=== PATIENT | female | born 1960 | race Caucasian/White ===

== ENCOUNTER 2016-07-25 01:31 | Inpatient (IN) | payer OTHER ==
[2016-07-25] MEDS ORDERED: SODIUM CHLORIDE 0.9% 1,000 ML IV STA (01:59)
[2016-07-25] MEDS ORDERED: ACETAMINOPHEN TAB 325 MG TAB PO STA (01:59)
[2016-07-25] MEDS ORDERED: ONDANSETRON 4 MG/2 ML VIAL IVP STA (02:00)
--- NOTE | 2016-07-25 02:11 | ED ---
General Adult HPI - General Chief complaint: Nausea/Vomiting/Diarrhea Stated complaint: bed sores Time Seen by Provider: 07/25/16 01:41 Source: patient, family Mode of arrival: ambulatory Limitations: no limitations - History of Present Illness Initial comments: This patient is 56-year-old woman who presents to be evaluated for "feeling sick " going for about one week now. Patient is somewhat of a poor historian when asked to clarify what being sick is referring to she continually uses the term sick. On appears her has been some fever and cough. Patient has had some myalgias and has been lying in bed. Patient is also had a couple of episodes of vomiting, though denying chest or abdominal pain. Onset/Timin -: week(s) Consistency: constant Improves with: none Worsens with: none Associated Symptoms: cough - Related Data Home Medications Medication Instructions Recorded Confirmed No Known Home Medications [No 07/25/16 07/25/16 Known Home Medications] Allergies Allergy/AdvReac Type Severity Reaction Status Date / Time Penicillins Allergy Unknown Verified 07/25/16 01:36 Childhood Review of Systems ROS Statement: Those systems with pertinent positive or pertinent negative responses have been documented in the HPI. ROS Other: All systems not noted in ROS Statement are negative. Constitutional: Reports: fever ENT: Reports: congestion Respiratory: Reports: cough. Denies: dyspnea, hemoptysis Cardiovascular: Denies: chest pain, orthopnea, syncope Gastrointestinal: Reports: vomiting. Denies: abdominal pain, diarrhea, constipation, melena, hematochezia Genitourinary: Denies: dysuria, hematuria Skin: Denies: rash Neurological: Denies: headache, weakness, numbness Past Medical History Past Medical History: No Reported History History of Any Multi-Drug Resistant Organisms: None Reported Past Surgical History: Orthopedic Surgery Additional Past Surgical History / Comment(s): breast Past Psychological History: No Psychological Hx Reported Smoking Status: Current every day smoker Past Alcohol Use History: Occasional Past Drug Use History: None Reported - Past Family History Father Family Medical History: No Reported History General Exam Limitations: no limitations General appearance: alert, in no apparent distress Head exam: Present: atraumatic, normocephalic Eye exam: Present: normal appearance, PERRL, EOMI. Absent: scleral icterus, conjunctival injection, nystagmus ENT exam: Present: mucous membranes dry, other (Injection of the pharynx) Neck exam: Present: normal inspection, full ROM. Absent: tenderness, meningismus Respiratory exam: Present: normal lung sounds bilaterally. Absent: respiratory distress, wheezes, rales, rhonchi, stridor Cardiovascular Exam: Present: normal rhythm, tachycardia, normal heart sounds. Absent: systolic murmur, diastolic murmur, rubs, gallop GI/Abdominal exam: Present: soft. Absent: distended, tenderness, guarding, rebound, mass Extremities exam: Present: normal inspection, normal capillary refill. Absent: pedal edema, calf tenderness Back exam: Present: normal inspection. Absent: CVA tenderness (R), CVA tenderness (L) Neurological exam: Present: alert Skin exam: Present: warm, dry, intact, normal color. Absent: rash Course Vital Signs 07/25/16 07/25/16 07/25/16 01:33 02:24 03:24 Temperature 102 F H 98.5 F Pulse Rate 111 H 95 Respiratory 20 18 Rate Blood Pressure 94/61 109/67 O2 Sat by Pulse 95 97 Oximetry 07/25/16 04:00 Temperature 98.0 F Pulse Rate 82 Respiratory 18 Rate Blood Pressure 102/58 O2 Sat by Pulse 96 Oximetry Medical Decision Making - Lab Data Result diagrams: 07/25/16 01:50 07/25/16 01:50 Lab Results 07/25/16 07/25/16 07/25/16 Range/Units 01:50 01:50 01:50 WBC 10.6 (3.8-10.6) k/uL RBC 3.38 L (3.80-5.40) m/uL Hgb 10.7 L (11.4-16.0) gm/dL Hct 30.7 L (34.0-46.0) % MCV 90.8 (80.0-100.0) fL MCH 31.6 (25.0-35.0) pg MCHC 34.8 (31.0-37.0) g/dL RDW 13.5 (11.5-15.5) % Plt Count 310 (150-450) k/uL Neutrophils % 86 % Lymphocytes % 7 % Monocytes % 4 % Eosinophils % 0 % Basophils % 0 % Neutrophils # 9.1 H (1.3-7.7) k/uL Lymphocytes # 0.7 L (1.0-4.8) k/uL Monocytes # 0.5 (0-1.0) k/uL Eosinophils # 0.0 (0-0.7) k/uL Basophils # 0.1 (0-0.2) k/uL ESR 96 H (0-20) mm/hr Sodium 128 L (137-145) mmol/L Potassium 4.2 (3.5-5.1) mmol/L Chloride 95 L (98-107) mmol/L Carbon Dioxide 22 (22-30) mmol/L Anion Gap 11 mmol/L BUN 10 (7-17) mg/dL Creatinine 0.60 (0.52-1.04) mg/dL Est GFR (MDRD) Af Amer >60 (>60 ml/min/1.73 sqM) Est GFR (MDRD) Non-Af >60 (>60 ml/min/1.73 sqM) Glucose 122 H (74-99) mg/dL Plasma Lactic Acid Connor (0.7-2.0) mmol/L Calcium 8.0 L (8.4-10.2) mg/dL Total Bilirubin 0.7 (0.2-1.3) mg/dL AST 98 H (14-36) U/L ALT 57 H (9-52) U/L Alkaline Phosphatase 109 (38-126) U/L Total Protein 8.2 (6.3-8.2) g/dL Albumin 2.8 L (3.5-5.0) g/dL Urine Color Urine Appearance (Clear) Urine pH (5.0-8.0) Ur Specific [place] (1.001-1.035) Urine Protein (Negative) Urine Glucose (UA) (Negative) Urine Ketones (Negative) Urine Blood (Negative) Urine Nitrate (Negative) Urine Bilirubin (Negative) Urine Urobilinogen (<2.0) mg/dL Ur Leukocyte Esterase (Negative) Urine RBC (0-5) /hpf Urine WBC (0-5) /hpf Ur Squamous Epith Cells (0-4) /hpf Urine Mucus (None) /hpf Influenza Type A RNA Not Detected (Not Detectd) Influenza Type B (PCR) Not Detected (Not Detectd) Group A Strep Rapid (Negative) 07/25/16 07/25/16 07/25/16 Range/Units 01:50 01:50 03:15 WBC (3.8-10.6) k/uL RBC (3.80-5.40) m/uL Hgb (11.4-16.0) gm/dL Hct (34.0-46.0) % MCV (80.0-100.0) fL MCH (25.0-35.0) pg MCHC (31.0-37.0) g/dL RDW (11.5-15.5) % Plt Count (150-450) k/uL Neutrophils % % Lymphocytes % % Monocytes % % Eosinophils % % Basophils % % Neutrophils # (1.3-7.7) k/uL Lymphocytes # (1.0-4.8) k/uL Monocytes # (0-1.0) k/uL Eosinophils # (0-0.7) k/uL Basophils # (0-0.2) k/uL ESR (0-20) mm/hr Sodium (137-145) mmol/L Potassium (3.5-5.1) mmol/L Chloride (98-107) mmol/L Carbon Dioxide (22-30) mmol/L Anion Gap mmol/L BUN (7-17) mg/dL Creatinine (0.52-1.04) mg/dL Est GFR (MDRD) Af Amer (>60 ml/min/1.73 sqM) Est GFR (MDRD) Non-Af (>60 ml/min/1.73 sqM) Glucose (74-99) mg/dL Plasma Lactic Acid Connor 1.0 (0.7-2.0) mmol/L Calcium (8.4-10.2) mg/dL Total Bilirubin (0.2-1.3) mg/dL AST (14-36) U/L ALT (9-52) U/L Alkaline Phosphatase (38-126) U/L Total Protein (6.3-8.2) g/dL Albumin (3.5-5.0) g/dL Urine Color Yellow Urine Appearance Cloudy H (Clear) Urine pH 6.0 (5.0-8.0) Ur Specific [place] 1.007 (1.001-1.035) Urine Protein 1+ H (Negative) Urine Glucose (UA) Negative (Negative) Urine Ketones Negative (Negative) Urine Blood Negative (Negative) Urine Nitrate Negative (Negative) Urine Bilirubin Negative (Negative) Urine Urobilinogen <2.0 (<2.0) mg/dL Ur Leukocyte Esterase Negative (Negative) Urine RBC 1 (0-5) /hpf Urine WBC 6 H (0-5) /hpf Ur Squamous Epith Cells 2 (0-4) /hpf Urine Mucus Rare H (None) /hpf Influenza Type A RNA (Not Detectd) Influenza Type B (PCR) (Not Detectd) Group A Strep Rapid Negative (Negative) Disposition Clinical Impression: Pneumonia Disposition: ADMITTED IP TO THIS HOSP Condition: Fair
[2016-07-25 02:12] LABS: Basophils # (A) 0.1 k/uL (0-0.2); Basophils % (A) 0 %; CH 30.6; CHCM 33.8; Eosinophils % (A) 0 %; HCT 30.7 % (34.0-46.0); HDW 2.31; HGB 10.7 gm/dL (11.4-16.0); Luc # (Auto) 0.19; Luc % (Auto) 2; Lymphocytes # (A) 0.7 k/uL (1.0-4.8); Lymphocytes % (A) 7 %; MCH 31.6 pg (25.0-35.0); MCHC 34.8 g/dL (31.0-37.0); MCV 90.8 fL (80.0-100.0); Mean Platelet Volume 8.6; Monocytes # (A) 0.5 k/uL (0-1.0); Monocytes % (A) 4 %; Neutrophils # (A) 9.1 k/uL (1.3-7.7); Neutrophils % (A) 86 %; RBC 3.38 m/uL (3.80-5.40); RDW 13.5 % (11.5-15.5); WBC 10.6 k/uL (3.8-10.6); WBC (Perox) 10.36
[2016-07-25 02:24] LABS: ALT 57 U/L (9-52); AST 98 U/L (14-36); Alkaline Phosphatase 109 U/L (38-126); Anion Gap 11 mmol/L; Blood Urea Nitrogen 10 mg/dL (7-17); Carbon Dioxide 22 mmol/L (22-30); Chloride 95 mmol/L (98-107); Glucose 122 mg/dL (74-99); Non-African American GFR(MDRD) >60 (>60 ml/min/1.73 sqM); Potassium 4.2 mmol/L (3.5-5.1); Sodium 128 mmol/L (137-145); Total Bilirubin 0.7 mg/dL (0.2-1.3); Total Protein 8.2 g/dL (6.3-8.2)
--- NOTE | 2016-07-25 02:29 | XR ---
EXAM: XR Chest, 2 Views. CLINICAL HISTORY: Reason: fever TECHNIQUE: Frontal and lateral views of the chest. COMPARISON: No relevant prior studies available. FINDINGS: Lungs: Patchy airspace disease at the left upper lobe. More focal area of very space disease at the peripheral aspect of the right upper lobe. Possible airspace disease involving the inferior lingula. No pleural effusion or pneumothorax. Pleural space: See above. Heart: Unremarkable. No cardiomegaly. Mediastinum: Unremarkable. Bones/joints: Unremarkable. Lymph nodes: Cannot exclude reactive left hilar adenopathy. IMPRESSION: Findings suspicious for multilobar pneumonia. Follow to resolution.
[2016-07-25 02:53] LABS: Erythrocyte Sedimentation Rate 96 mm/hr (0-20)
[2016-07-25] MEDS ORDERED: PNEUMONIA PROTOCOL UTILIZED 1 EACH MISC PO PRN (03:18)
[2016-07-25] MEDS ORDERED: AZITHROMYCIN 500 MG TAB PO STA (03:20)
[2016-07-25 03:25] LABS: Appearance,Urine Cloudy (Clear); Bilirubin,Urine Negative (Negative); Glucose,Urine (UA) Negative (Negative); Ketones,Urine Negative (Negative); Leukocyte Esterase,Urine Negative (Negative); Mucus,Urine Rare /hpf; Nitrite,Urine Negative (Negative); Particle Count 11014; Protein,Urine 1+ (Negative); RBC,Urine 1 /hpf (0-5); Specific Gravity,Urine 1.007 (1.001-1.035); Squamous Epithelial Cell,Urine 2 /hpf (0-4); UA Billing (MACRO vs. MICRO) MICRO; Urobilinogen,Urine <2.0 mg/dL (<2.0); WBC,Urine 6 /hpf (0-5)
[2016-07-25] MEDS: SODIUM CHLORIDE 0.9% 1,000 ML IV SCH ×3 (03:53→20:27)
[2016-07-25] MEDS ORDERED: NAPROXEN 250 MG TAB PO PRN (12:06)
--- NOTE | 2016-07-25 12:20 | P.HPIM ---
History of Present Illness H&P Date: 07/25/16 Chief Complaint: Cough 1 week This is a 56-year-old female with a known history of nicotine dependence and COPD. Patient reports she does not take meds at home. She reports that she had recently been at [facility] emergency room and discharged home earlier this week. She reports she was not on any antibiotics. She's been complaining of productive cough with brownish sputum and some shortness of breath. She states that the cough tends of making her gag and causes almost vomit. She presents to the emergency room with a chest x-ray that shows a multilobar pneumonia she was started on Rocephin and azithromycin. She did have a temp of 102. Her white count and lactic acid were normal. Influenza negative and strep screen was negative. Patient admits to having some chills and sweats. She denies any chest pain. Denies any bowel movement changes or urinary symptoms. Patient's blood pressure have been running in the lower side 82/52. Repeat blood pressure of 90/58. She denies any dizziness. Review of Systems Please refer to HPI otherwise unremarkable Past Medical History Past Medical History: No Reported History History of Any Multi-Drug Resistant Organisms: None Reported Past Surgical History: Orthopedic Surgery Additional Past Surgical History / Comment(s): breast Past Anesthesia/Blood Transfusion Reactions: No Reported Reaction Past Psychological History: No Psychological Hx Reported Smoking Status: Current every day smoker Past Alcohol Use History: Occasional Past Drug Use History: None Reported - Past Family History Father Family Medical History: No Reported History Medications and Allergies Home Medications Medication Instructions Recorded Confirmed Type Naproxen Sodium [Aleve] 220 mg PO DAILY PRN 07/25/16 07/25/16 History Allergies Allergy/AdvReac Type Severity Reaction Status Date / Time Penicillins Allergy Unknown Verified 07/25/16 08:15 Childhood Physical Exam Vitals: Vital Signs Temp Pulse Pulse Resp BP BP Pulse Ox 07/25/16 10:57 90/58 07/25/16 07:00 96.4 F L 84 21 82/52 97 07/25/16 05:07 97.0 F L 83 18 92/62 95 07/25/16 04:00 98.0 F 82 18 102/58 96 07/25/16 03:24 98.5 F Intake and Output 07/24/16 07/25/16 07/25/16 22:59 06:59 14:59 Other: Voiding Method Toilet # Voids 1 Weight 59 kg Head normocephalic Neck supple Lungs coarse breath sounds noted bilaterally Heart regular rate and rhythm S1-S2, no rub or gallop Abdomen is soft nontender nondistended positive bowel sounds no hepatosplenomegaly Extremities no edema Neuro alert and orientated to 3 Results CBC & Chem 7: 07/25/16 01:50 07/25/16 01:50 Thrombosis Risk Factor Assmnt - Choose All That Apply Any of the Below Risk Factors Present?: Yes Each Factor Represents 1 point: Age 41-60 years Other Risk Factors: No Thrombosis Risk Factor Assessment Total Risk Factor Score: 1 Thrombosis Risk Factor Assessment Level: Low Risk Assessment and Plan Plan: 1. Pneumonia: Chest x-ray showing multilobar pneumonia. Patient started on Zithromax and IV Rocephin. 2. Hyponatremia: Sodium of 128. Continue with IV fluids. Repeat labs in a.m. 3. Mildly elevated LFTs: No abdominal pain. Repeat labs in a.m. 4. Nicotine dependence: Patient is down to 7 cigarettes a day. Counseled on smoking cessation for greater than [address] patient on nicotine patch. 5. Possible history of COPD. Patient reports she's not on any medications 6. Hypotension: Patient did receive a fluid bolus in the emergency room. Continue with IV fluids. Monitor blood pressures closely. GI prophylaxis Pepcid and DVT prophylaxis subcu heparin Time with Patient: Greater than 30 (Greater than 50% of the total time spent in counseling and coordination of care.I performed an examination of the patient and discussed their management with the physician Director Dietetics Department. I have reviewed the Physician Director Dietetics Department's notes and agree with the documented findings and plan of care)
[2016-07-25] MEDS ORDERED: IPRATROPIUM-ALBUTEROL 3 ML NEB INHALATION PRN (13:46)
[2016-07-25] MEDS: NICOTINE 7MG/24HR PATCH TRANSDERM SCH (14:48)
[2016-07-25] MEDS: FAMOTIDINE 20 MG TAB PO SCH (14:48)
[2016-07-25] MEDS: IPRATROPIUM-ALBUTEROL 3 ML NEB INHALATION SCH ×2 (16:05→19:46)
[2016-07-25] MEDS ORDERED: RX INFO: IV CONTRAST WAS GIVEN 1 EACH MISC MISCELLANE PRN (16:14)
[2016-07-25] MEDS: OSELTAMIVIR 75 MG CAP PO SCH (16:52)
--- NOTE | 2016-07-25 18:08 | CT ---
EXAMINATION TYPE: CT angio chest DATE OF EXAM: 07/25/2016 5:58 PM COMPARISON: NONE HISTORY: Chest congestion. CT DLP: 438.00 mGycm CONTRAST: CT chest with contrast and 3D reconstruction with MIP imaging is performed with IV Contrast, patient injected with 86 mL of Omnipaque 350. Contrast-enhanced CT of the chest was performed through the course of the pulmonary arteries with timmy g and mediastinal window settings submitted. 3D reconstruction with MIP imaging was also performed. PULMONARY ARTERIES: The pulmonary arteries and their major tributaries are patent. I do not see gustabo dence for sizable filling defect to suggest pulmonary embolic process. LUNGS: Upper lobe airspace infiltrates are noted left much greater than right. There is superimposed fibrosis with bronchiectasis again involving the left upper lobe to a greater extent. Small left-side d pleural effusion is identified. No evidence for pulmonary mass. MEDIASTINUM: Thoracic aorta is of normal caliber . The heart is not enlarged. No evidence for media stinal mass. No mediastinal lymph nodes greater than 1cm. HILAR STRUCTURES: No evidence for mass. No hilar lymph nodes greater than 1 cm. UPPER ABDOMEN: Fixed hiatal hernia noted. IMPRESSION: 1. No evidence for Pulmonary embolism at this time. 2. Upper lobe and lingular infiltrates with superimposed fibrosis and bronchiectasis as well as small left-sided effusion.
[2016-07-25] MEDS ORDERED: IV VANCOMYCIN PER PHARMACY 1 EACH MISC MISCELLANE PRN (19:47)
--- NOTE | 2016-07-25 19:58 | CONS ---
DATE OF CONSULTATION: 07/25/2016 REASON FOR CONSULTATION: Cough, shortness of breath and wheezing that started about 10 to 12 days ago and has been progressive. HISTORY OF PRESENTING ILLNESS: Ms. Yung Tubbs is seen, evaluated, and examined on fourth floor. This patient has a history smoking and nicotine use, smokes about 1 pack per day for 30 to 35 years, started teenage years. The patient does not take flu vaccine. This patient has not been feeling well for the last 7 to 10 days with progressive cough, congestion, shortness of breath and wheezing with lately brownish sputum production. Recently she presented into the emergency department at [facility] and was discharged. Details, however, are not available. Patient presented to the [facility] Emergency Department with persistent and progressive increased shortness and brownish sputum production. The patient was seen, evaluated, examined and found to have significant bronchospasm and has been admitted to the hospital. She is feeling slightly better with breathing treatments and receiving IV steroids though. Her past medical history is as dictated above, significant for COPD. PAST SURGICAL HISTORY: Significant for breast surgery, orthopedic surgery. Details are not available. FAMILY HISTORY AND SOCIAL HISTORY: Otherwise unremarkable and noncontributory except as dictated above. 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 CARDIORESPIRATORY: As dictated above. Significant cough, congestion and sputum production. Also complained of nasal stuffiness and congestion. GI/: Otherwise unremarkable and noncontributory. MUSCULOSKELETAL/DERMATOLOGICAL: Unremarkable and noncontributory. ALLERGIES INCLUDE PENICILLIN. MEDICATIONS AT HOME: None. Current medications while in the hospital include: 1. DuoNeb unit dose updraft 4 times a day. 2. Zithromax 500 mg. 3. Rocephin 1 gram daily. 4. Pepcid 20 mg daily. 5. Subcu heparin for DVT prophylaxis. 6. Sliding scale insulin. 7. Naprosyn. 8. Habitrol patch. 9. IV fluid normal saline 100 mL an hour. On examination, her most recent vitals include blood pressure is 98/50, respiratory rate 20, pulse 82, temperature 98, saturation of 95% on room air. HEENT: Atraumatic, normocephalic. Pharynx clear. NECK: Supple without lymphadenopathy, jugular venous distention. LUNGS: Bilateral coarse breath sounds present inspiratory and expiratory wheezing and rhonchi. HEART: Regular rate and rhythm. S1 and S2 audible. ABDOMEN: Soft. No rebound or rigidity. EXTREMITIES: +1 peripheral pulses. NEUROLOGICAL EXAMINATION: Otherwise, awake and alert. Labs reviewed influenza A and B are both negative. The strep is negative as well. The urine is cloudy, but no significant WBC or RBCs seen. Chemistry with sodium 120, potassium 4.2. BUN and creatinine 10 and 0.6. LFTs are within normal limits. AST and ALT are 90 and 57. Alk phos is 109. Glucose 122. Lactic acid is 1.0. Total bilirubin is 0.7. White cell count 10,600, hemoglobin 10, hematocrit 30, platelet count 310,000. Radiographic studies reviewed. Chest x-ray performed in the emergency department earlier this morning reviewed and compared with prior x-ray, patchy bilateral infiltrates present, more so on the left side compared to the right side, highly suggestive of pneumonia. Atypical pneumonia cannot be excluded versus viral pneumonia ASSESSMENT: 1. Severe hyponatremia of unclear etiology. Would recommend a follow-up chest x-ray down the road to document resolution of pneumonia. 2. Extensive smoking and nicotine use. Patient has been counseled about smoking cessation. Plan and recommendation is as above. Continue supportive care. Continue breathing treatments and antibiotics. Will add IV steroids. Patient has somewhat nodular appearance of infiltrate, an occult neoplastic process cannot be excluded. Could benefit from a CT scan of the chest. Will follow.
[2016-07-25] MEDS: HEPARIN SODIUM,PORCINE 5,000 UNIT/ML 1 ML VIAL SQ SCH (20:25)
[2016-07-25] MEDS: methylPREDNISolone SOD SUCCI 40 MG/ML 1 ML VIAL IV SCH (20:25)
[2016-07-25] MEDS: VANCOMYCIN 1,250 MG in SODIUM CHLORIDE 0.9% 250 ML IVPB SCH (20:29)
[2016-07-26] MEDS: IPRATROPIUM-ALBUTEROL 3 ML NEB INHALATION SCH ×4 (07:30→19:46)
[2016-07-26] MEDS: NICOTINE 7MG/24HR PATCH TRANSDERM SCH (07:48)
[2016-07-26] MEDS: HEPARIN SODIUM,PORCINE 5,000 UNIT/ML 1 ML VIAL SQ SCH ×2 (07:48→20:02)
[2016-07-26] MEDS: methylPREDNISolone SOD SUCCI 40 MG/ML 1 ML VIAL IV SCH ×2 (07:48→20:02)
[2016-07-26] MEDS: VANCOMYCIN 1,250 MG in SODIUM CHLORIDE 0.9% 250 ML IVPB SCH ×2 (07:48→20:02)
[2016-07-26] MEDS: FAMOTIDINE 20 MG TAB PO SCH (07:49)
[2016-07-26] MEDS: OSELTAMIVIR 75 MG CAP PO SCH (07:49)
[2016-07-26 08:20] LABS: Basophils % (A) 0 %; CHCM 31.9; Eosinophils % (A) 0 %; HCT 30.2 % (34.0-46.0); HDW 2.47; HGB 9.7 gm/dL (11.4-16.0); Luc % (Auto) 2; Lymphocytes # (A) 0.5 k/uL (1.0-4.8); Lymphocytes % (A) 10 %; MCH 30.4 pg (25.0-35.0); MCHC 32.2 g/dL (31.0-37.0); MCV 94.6 fL (80.0-100.0); Mean Platelet Volume 8.7; Monocytes # (A) 0.2 k/uL (0-1.0); Monocytes % (A) 3 %; Neutrophils # (A) 4.5 k/uL (1.3-7.7); Neutrophils % (A) 84 %; RBC 3.19 m/uL (3.80-5.40); RDW 13.8 % (11.5-15.5); WBC 5.3 k/uL (3.8-10.6); WBC (Perox) 5.44
[2016-07-26 08:48] LABS: ALT 39 U/L (9-52); AST 28 U/L (14-36); Alkaline Phosphatase 80 U/L (38-126); Anion Gap 10 mmol/L; Blood Urea Nitrogen 8 mg/dL (7-17); Calcium 8.1 mg/dL (8.4-10.2); Carbon Dioxide 23 mmol/L (22-30); Chloride 106 mmol/L (98-107); Glucose 184 mg/dL (74-99); Non-African American GFR(MDRD) >60 (>60 ml/min/1.73 sqM); Potassium 4.4 mmol/L (3.5-5.1); Sodium 139 mmol/L (137-145); Total Bilirubin 0.4 mg/dL (0.2-1.3); Total Protein 7.3 g/dL (6.3-8.2)
[2016-07-26] MEDS ORDERED: AZITHROMYCIN 500 MG TAB PO SCH (09:00)
--- NOTE | 2016-07-26 09:01 | XR ---
EXAMINATION TYPE: XR chest 2V DATE OF EXAM: 07/26/2016 7:10 AM COMPARISON: Prior chest x-ray second of July 2016 HISTORY: Pneumonia, abnormal chest x-ray TECHNIQUE: Frontal and lateral views of the chest are obtained. FINDINGS: Similar findings to previous exam. No evident pneumothorax, small left effusion. Airspace disease persists in the left lower lobe. IMPRESSION: Findings compatible with pneumonia. There is underlying emphysema.
--- NOTE | 2016-07-26 11:18 | P.PN ---
Subjective Patient is evaluated and examined today on the fourth floor. Patient is being seen for cough shortness of breath and wheezing that had started about 2 weeks ago and has progressively gotten worse. The patient is a current smoker and she smokes about 1-2 packs a day for the last 30-35 years. She states that she has a persistent cough and congestion with shortness of breath and her sputum has been brownish tinged. Recently she went to [facility] and was discharged from the ER however she came back yesterday to the [facility] emergency department due to progressively getting worse. In the ER she was noted to have some bronchospasms and was ultimately admitted to the hospital. She was started on IV steroids and antibiotics. Influenza A and B were both negative. Objective - Vital Signs Vital signs: Vital Signs Temp 97.2 F L 07/26/16 07:00 Pulse 67 07/26/16 07:00 Resp 19 07/26/16 07:00 BP 101/66 07/26/16 07:00 Pulse Ox 97 07/26/16 07:00 Intake & Output 07/25/16 07/26/16 07/26/16 18:59 06:59 18:59 Intake Total 400 Balance 400 Intake: Oral 400 Other: Voiding Method Toilet Toilet Toilet # Voids 2 2 - Exam GENERAL EXAM: Alert, active, comfortable in no apparent distress. HEAD: Normocephalic. EYES: Normal reaction of pupils, equal size. NOSE: Clear with pink turbinates. THROAT: No erythema or exudates. NECK: No masses, no JVD. CHEST: No chest wall deformity. LUNGS: Bilaterally coarse breath sounds with persistent increased inspiratory and expiratory wheezing with rhonchi. CVS: S1 and S2 normal with no audible mumurs, regular rhythm. ABDOMEN: No hepatosplenomegaly, normal bowel sounds, no guarding or rigidity. EXTREMITIES: No edema noted, pedal pulses palpable. SKIN: No rashes CENTRAL NERVOUS SYSTEM: No focal deficits, tone is normal in all 4 extremities. - Labs CBC & Chem 7: 07/26/16 07:57 07/26/16 07:57 Labs: Abnormal Lab Results - Last 24 Hours (Table) 07/26/16 07/26/16 Range/Units 07:57 07:57 RBC 3.19 L (3.80-5.40) m/uL Hgb 9.7 L (11.4-16.0) gm/dL Hct 30.2 L (34.0-46.0) % Lymphocytes # 0.5 L (1.0-4.8) k/uL Glucose 184 H (74-99) mg/dL Calcium 8.1 L (8.4-10.2) mg/dL Albumin 2.4 L (3.5-5.0) g/dL Assessment and Plan Plan: Assessment Possible atypical pneumonia cannot exclude viral pneumonia Acute exacerbation of COPD Severe hyponatremia of unclear etiology Current active nicotine abuse Plan is to continue with IV steroids and antibiotics. We will continue with supportive care and breathing treatments. We will monitor labs and adjust treatment as necessary. Further recommendations pending.
[2016-07-26 12:01] VITALS: BMI 20.9
[2016-07-26] MEDS: SODIUM CHLORIDE 0.9% 1,000 ML IV SCH ×2 (12:26→20:02)
[2016-07-26 14:05] LABS: % Iron Saturation 20.1 % (20-50)
--- NOTE | 2016-07-26 14:27 | P.PN ---
Subjective Patient is being treated for COPD exacerbation and pneumonia She is still complaining of some shortness of breath and cough. And overall not feeling well. She did have one positive blood culture Streptococcus pneumoniae. Denies any chest pain, nausea or vomiting. She is having bowel movements. Denies any difficulty urinating. Objective - Vital Signs Vital signs: Vital Signs Temp 97.2 F L 07/26/16 07:00 Pulse 80 07/26/16 12:04 Resp 19 07/26/16 07:00 BP 101/66 07/26/16 07:00 Pulse Ox 97 07/26/16 07:00 Intake & Output 07/25/16 07/26/16 07/26/16 18:59 06:59 18:59 Intake Total 400 Balance 400 Weight 59 kg Intake: Oral 400 Other: Voiding Method Toilet Toilet Toilet # Voids 2 2 - Exam Head normocephalic Neck supple Lungs coarse breath sounds bilaterally with wheezing Heart regular rate and rhythm S1-S2, no rub or gallop Abdomen is soft nontender nondistended positive bowel sounds no hepatosplenomegaly Extremities no edema Neuro alert and orientated to 3 - Labs CBC & Chem 7: 07/26/16 07:57 07/26/16 07:57 Labs: Abnormal Lab Results - Last 24 Hours (Table) 07/26/16 07/26/16 Range/Units 07:57 07:57 RBC 3.19 L (3.80-5.40) m/uL Hgb 9.7 L (11.4-16.0) gm/dL Hct 30.2 L (34.0-46.0) % Lymphocytes # 0.5 L (1.0-4.8) k/uL Glucose 184 H (74-99) mg/dL Calcium 8.1 L (8.4-10.2) mg/dL Albumin 2.4 L (3.5-5.0) g/dL Assessment and Plan Plan: 1. Pneumonia: Chest x-ray showing multilobar pneumonia. Patient started on Zithromax and IV Rocephin. Pulmonary service following 2. Acute COPD exacerbation: Continue with steroids and bronchodilators. Pulmonary service following 3. Hyponatremia: Sodium of 128 on admission. Sodium is now corrected 139. Now shown improvement after IV fluids. Decrease IV fluids to 50 mL an hour 3. Mildly elevated LFTs: On admission, now resolved. 4. Nicotine dependence: Patient is down to 7 cigarettes a day. Counseled on smoking cessation for greater than [address] patient on nicotine patch. 5. Hypotension: Patient did receive a fluid bolus in the emergency room. Continue with IV fluids. Monitor blood pressures closely. 6. Positive blood culture Streptococcus pneumoniae. Infectious disease consulted. Repeat blood culture ordered. 7. Severe protein calorie malnutrition: Continue ensure 8. Anemia: Check iron studies. No signs of active bleeding. GI prophylaxis Pepcid and DVT prophylaxis subcu heparin
--- NOTE | 2016-07-26 17:00 | CONS ---
DATE OF CONSULTATION: 07/26/2016 REASON FOR CONSULTATION: Bacteremia. HISTORY OF PRESENT ILLNESS: The patient is a 56-year-old female with a past medical history significant for COPD. She presented to the ER at [facility] with the chief complaints of cough and congestion. Her symptoms have been going on for more than a week now. The patient did have a cough productive of some brownish sputum. No hemoptysis. No significant chest pain. The patient was previously evaluated for the same symptomatology; however, she received a shot and was discharged home. Here the patient did have a fever of 102 degrees Fahrenheit on arrival in the ER. Her white count was normal at 10.6. The patient did have influenza A and B serology; both have been negative. The patient did have a chest x-ray that showed findings suspicious for multi-lobar pneumonia. Patient was started on Rocephin and azithromycin. The patient did have blood cultures drawn which came back positive with Gram-positive cocci; hence I was asked to see the patient for further recommendations regarding antibiotic therapy. Patient also had a CT angiogram that was negative for PE; however, it did show upper lobe and lingular infiltrate with superimposed fibrosis and bronchiectasis. REVIEW OF SYSTEMS: CONSTITUTIONAL: Positive for weakness and fever. EYES: No complaint. ENT: No complaint. RESPIRATORY: As per HPI. CARDIOVASCULAR: No complaint. GENITOURINARY: No complaint. GASTROINTESTINAL: No complaint. MUSCULOSKELETAL: No complaint. INTEGUMENTARY: No complaint. PSYCHOLOGICAL: No complaint. NEUROLOGICAL: No complaint. PAST MEDICAL HISTORY: Significant for COPD. PAST SURGICAL HISTORY: History of breast surgery. SOCIAL HISTORY: Positive for smoking about a pack a day. Denies drinking or drug use. FAMILY HISTORY: No pertinent findings were noticed. ALLERGIES: PENICILLIN; however she tolerated Rocephin without any problem. Medications currently include: 1. DuoNeb. 2. Rocephin 1 gram daily. 3. Pepcid. 4. Heparin. 5. Solu-Medrol. 6. Vancomycin. 7. Naproxen. 8. Nicotine patch. 9. Tamiflu. On examination, blood pressure is 101/66 with a pulse of 67, temperature 97.2. T-max on admission with temperature of 102. Patient is 97% on room air. General description is a middle-aged female who looks older than her age. Lying in bed in no distress. No tachypnea or accessory muscle of respiration use. HEENT examination shows slight pallor. No scleral icterus. Oral mucous membrane is dry. NECK: Trachea is central. No thyromegaly. LUNGS: Unlabored breathing. Some coarse breath sounds at the bases bilaterally. HEART: S1, S2. Regular rate and rhythm. ABDOMEN: Soft. No tenderness. EXTREMITIES: No edema of feet. SKIN EXAMINATION: No rash or mass palpable. Neurologically patient is awake and alert, oriented x3. Mood and affect normal. LABS: Hemoglobin is 9.7, white count of 5.3. BUN of 8 with creatinine 0.54. UA has been negative. Influenza A and B serology has been negative. Blood culture with Gram-positive cocci identified as Streptococcus pneumoniae. DIAGNOSTIC IMPRESSION AND PLAN: Patient admitted to hospital with sepsis in a patient who did have a fever did have hypotension source is pneumonia, now with the blood culture showing Streptococcus pneumoniae, likely the source of her pneumonia. PLAN: 1. Will discontinue Tamiflu, as influenza A and B serology has been negative. 2. Will increase the Rocephin to 2 grams daily and continue the patient on vancomycin while waiting for the sensitivity on the Streptococcus pneumoniae. 3. Will follow up on the clinical condition and cultures to further adjust medication if needed. Thank you for this consultation. Will follow this patient along with you. RACHELLE
[2016-07-26] MEDS: cefTRIAXone 2,000 MG in SODIUM CHLORIDE 0.9% 100 ML IVPB SCH (18:07)
[2016-07-27] MEDS ORDERED: VANCOMYCIN TROUGH DUE 1 EACH MISC MISCELLANE ONE (07:00)
[2016-07-27] MEDS: NICOTINE 7MG/24HR PATCH TRANSDERM SCH (07:49)
[2016-07-27] MEDS: IPRATROPIUM-ALBUTEROL 3 ML NEB INHALATION SCH ×4 (07:58→19:27)
--- NOTE | 2016-07-27 08:13 | P.PN ---
Subjective Patient is evaluated and examined today on the fourth floor. Patient is being seen for cough shortness of breath and wheezing that had started about 2 weeks ago and has progressively gotten worse. The patient is a current smoker and she smokes about 1-2 packs a day for the last 30-35 years. She states that she has a persistent cough and congestion with shortness of breath and her sputum has been brownish tinged. Recently she went to [facility] and was discharged from the ER however she came back yesterday to the [facility] emergency department due to progressively getting worse. In the ER she was noted to have some bronchospasms and was ultimately admitted to the hospital. She was started on IV steroids and antibiotics. Influenza A and B were both negative. Upon examination the patient is sitting up in bed about to eat her breakfast. She states that she's feeling better, and that her breathing is slowly getting better as well. Objective - Vital Signs Vital signs: Vital Signs Temp 96.7 F L 07/26/16 23:00 Pulse 84 07/27/16 08:01 Resp 16 07/26/16 23:00 BP 108/69 07/26/16 23:00 Pulse Ox 98 07/27/16 08:01 Intake & Output 07/26/16 07/27/16 07/27/16 18:59 06:59 18:59 Weight 59 kg Other: Voiding Method Toilet Toilet # Voids 1 - Exam GENERAL EXAM: Alert, active, comfortable in no apparent distress. HEAD: Normocephalic. EYES: Normal reaction of pupils, equal size. NOSE: Clear with pink turbinates. THROAT: No erythema or exudates. NECK: No masses, no JVD. CHEST: No chest wall deformity. LUNGS: Bilaterally coarse tight breath sounds with persistent expiratory wheezing with faint rhonchi. CVS: S1 and S2 normal with no audible mumurs, regular rhythm. ABDOMEN: No hepatosplenomegaly, normal bowel sounds, no guarding or rigidity. EXTREMITIES: No edema noted, pedal pulses palpable. SKIN: No rashes CENTRAL NERVOUS SYSTEM: No focal deficits, tone is normal in all 4 extremities. - Labs CBC & Chem 7: 07/26/16 07:57 07/26/16 07:57 Labs: Abnormal Lab Results - Last 24 Hours (Table) 07/26/16 07/26/16 07/26/16 Range/Units 07:57 07:57 07:57 RBC 3.19 L (3.80-5.40) m/uL Hgb 9.7 L (11.4-16.0) gm/dL Hct 30.2 L (34.0-46.0) % Lymphocytes # 0.5 L (1.0-4.8) k/uL Glucose 184 H (74-99) mg/dL Calcium 8.1 L (8.4-10.2) mg/dL Iron 34 L (37-170) ug/dL TIBC 169 L (265-497) ug/dL Ferritin 1000 H (11-264) ng/mL Albumin 2.4 L (3.5-5.0) g/dL Microbiology - Last 24 Hours (Table) 07/26/16 07:30 Gram Stain - Preliminary Sputum 07/25/16 15:28 Blood Culture - Preliminary Blood No Growth after 24 hours Assessment and Plan Plan: Assessment Possible atypical pneumonia cannot exclude viral pneumonia Acute exacerbation of COPD Severe hyponatremia of unclear etiology, now improved Current active nicotine abuse Positive blood cultures for Streptococcus pneumoniae Plan is to continue with IV steroids and antibiotics. We will continue with supportive care and breathing treatments. We will monitor labs and adjust treatment as necessary. Infectious disease is on consult for positive blood cultures. We will continue with smoking cessation education and encouragement.
[2016-07-27 08:32] LABS: Basophils % (A) 1 %; CH 30.1; CHCM 31.1; Eosinophils % (A) 0 %; HCT 28.5 % (34.0-46.0); HGB 8.9 gm/dL (11.4-16.0); Hypochromasia Slight; Luc # (Auto) 0.12; Luc % (Auto) 2; Lymphocytes # (A) 0.7 k/uL (1.0-4.8); Lymphocytes % (A) 9 %; MCH 30.5 pg (25.0-35.0); MCHC 31.4 g/dL (31.0-37.0); MCV 97.2 fL (80.0-100.0); Mean Platelet Volume 8.9; Monocytes # (A) 0.2 k/uL (0-1.0); Monocytes % (A) 3 %; Neutrophils # (A) 6.7 k/uL (1.3-7.7); Neutrophils % (A) 86 %; RBC 2.93 m/uL (3.80-5.40); RDW 13.8 % (11.5-15.5); WBC 7.8 k/uL (3.8-10.6); WBC (Perox) 8.18
[2016-07-27] MEDS: VANCOMYCIN 1,250 MG in SODIUM CHLORIDE 0.9% 250 ML IVPB SCH ×3 (08:36→23:16)
[2016-07-27 08:50] LABS: ALT 27 U/L (9-52); AST 21 U/L (14-36); Alkaline Phosphatase 59 U/L (38-126); Anion Gap 12 mmol/L; Blood Urea Nitrogen 14 mg/dL (7-17); Calcium 8.7 mg/dL (8.4-10.2); Carbon Dioxide 20 mmol/L (22-30); Chloride 109 mmol/L (98-107); Glucose 165 mg/dL (74-99); Non-African American GFR(MDRD) >60 (>60 ml/min/1.73 sqM); Potassium 3.9 mmol/L (3.5-5.1); Sodium 141 mmol/L (137-145); Total Bilirubin 0.4 mg/dL (0.2-1.3); Total Protein 6.9 g/dL (6.3-8.2)
[2016-07-27] MEDS: HEPARIN SODIUM,PORCINE 5,000 UNIT/ML 1 ML VIAL SQ SCH ×2 (09:10→20:22)
[2016-07-27] MEDS: methylPREDNISolone SOD SUCCI 40 MG/ML 1 ML VIAL IV SCH ×2 (09:10→20:21)
[2016-07-27] MEDS: FAMOTIDINE 20 MG TAB PO SCH (09:11)
[2016-07-27] MEDS: SODIUM CHLORIDE 0.9% 1,000 ML IV SCH (11:27)
--- NOTE | 2016-07-27 14:37 | P.PN ---
Subjective No events overnight. Patient still having wheezing Objective - Vital Signs Vital signs: Vital Signs Temp 97.2 F L 07/27/16 07:00 Pulse 88 07/27/16 11:38 Resp 16 07/27/16 07:00 BP 112/72 07/27/16 07:00 Pulse Ox 98 07/27/16 08:01 Intake & Output 07/26/16 07/27/16 07/27/16 18:59 06:59 18:59 Weight 59 kg Other: Voiding Method Toilet Toilet # Voids 1 1 - Exam General: The patient is awake and alert, in no distress Eye: there is normal conjunctiva bilaterally. Neck: The neck is supple, there is no JVD. Cardiovascular: Normal S1-S2, no S3-S4, no murmurs. Respiratory: Lungs with end expiratory wheezing Gastrointestinal: Abdomen is soft, nontender Musculoskeletal: There is no pedal edema. Neurological:. Speech is normal. Skin: Skin is warm and dry - Labs CBC & Chem 7: 07/27/16 08:07 07/27/16 08:07 Labs: Abnormal Lab Results - Last 24 Hours (Table) 07/26/16 07/27/16 07/27/16 Range/Units 07:57 08:07 08:07 RBC 2.93 L (3.80-5.40) m/uL Hgb 8.9 L (11.4-16.0) gm/dL Hct 28.5 L (34.0-46.0) % Lymphocytes # 0.7 L (1.0-4.8) k/uL Chloride 109 H (98-107) mmol/L Carbon Dioxide 20 L (22-30) mmol/L Glucose 165 H (74-99) mg/dL Iron 34 L (37-170) ug/dL TIBC 169 L (265-497) ug/dL Ferritin 1000 H (11-264) ng/mL Albumin 2.4 L (3.5-5.0) g/dL Microbiology - Last 24 Hours (Table) 07/26/16 07:30 Gram Stain - Preliminary Sputum 07/25/16 15:28 Blood Culture - Preliminary Blood No Growth after 24 hours Assessment and Plan Plan: 1. Pneumonia: Chest x-ray showing multilobar pneumonia. Patient started on Zithromax and IV Rocephin. Pulmonary service following 2. Acute COPD exacerbation: Continue with steroids and bronchodilators. Pulmonary service following 3. Hyponatremia: Sodium of 128 on admission. Now shown improvement after IV fluids. 3. Mildly elevated LFTs: On admission, now resolved. 4. Nicotine dependence: Patient is down to 7 cigarettes a day. Counseled on smoking cessation for greater than [address] patient on nicotine patch. 5. Hypotension: Patient did receive a fluid bolus in the emergency room. Continue with IV fluids. Monitor blood pressures closely. 6. Positive blood culture Streptococcus pneumoniae. Infectious disease consulted. Repeat blood culture ordered. 7. Severe protein calorie malnutrition: Continue ensure Discontinue IV fluids, encouraged ambulation. Repeat lab work in the morning.
--- NOTE | 2016-07-27 16:49 | PN ---
DATE OF SERVICE: 07/27/2016 REASON FOR FOLLOW-UP: Strep pneumo bacteremia pneumonia. INTERVAL HISTORY: The patient is afebrile. She is breathing more comfortably, occasional cough, mouth dry. No chest pain. No abdominal pain. No nausea, vomiting or any diarrhea. On examination, blood pressure is 112/72 with a pulse of 55, temperature 97.2. She is 98% on room air. General description is a middle-age female up in the bed in no distress. RESPIRATORY SYSTEM: Unlabored breathing. Clear to auscultation anteriorly. HEART: S1, S2. Regular rate and rhythm. ABDOMEN: Soft, no tenderness. LABS: Hemoglobin 8.9, white count 7.8, BUN of 14, creatinine 0.59. Sensitivity with strep pneumo currently pending. Sputum culture pending. DIAGNOSTIC IMPRESSION AND PLAN: Patient with strep pneumo bacteremia. Source is likely pneumonia. We are waiting for the final sensitivity on this pathogen to determine her discharge antibiotics and continue the patient on Vanco and Rocephin at this point. Continue supportive care. NIKOD
[2016-07-27] MEDS: cefTRIAXone 2,000 MG in SODIUM CHLORIDE 0.9% 100 ML IVPB SCH (17:32)
[2016-07-28 07:26] VITALS: RESP 16
[2016-07-28] MEDS: IPRATROPIUM-ALBUTEROL 3 ML NEB INHALATION SCH ×4 (07:52→19:19)
[2016-07-28 08:17] LABS: Basophils % (A) 0 %; CH 30.2; CHCM 31.3; Eosinophils % (A) 0 %; HCT 28.1 % (34.0-46.0); HDW 2.56; HGB 8.8 gm/dL (11.4-16.0); Luc % (Auto) 1; Lymphocytes # (A) 0.8 k/uL (1.0-4.8); Lymphocytes % (A) 11 %; MCH 30.2 pg (25.0-35.0); MCHC 31.2 g/dL (31.0-37.0); MCV 96.8 fL (80.0-100.0); Mean Platelet Volume 8.5; Monocytes # (A) 0.3 k/uL (0-1.0); Monocytes % (A) 4 %; Neutrophils # (A) 5.8 k/uL (1.3-7.7); Neutrophils % (A) 84 %; RBC 2.91 m/uL (3.80-5.40); RDW 13.8 % (11.5-15.5); WBC (Perox) 7.27
[2016-07-28 08:35] LABS: ALT 33 U/L (9-52); AST 25 U/L (14-36); Alkaline Phosphatase 64 U/L (38-126); Anion Gap 9 mmol/L; Blood Urea Nitrogen 19 mg/dL (7-17); Calcium 8.9 mg/dL (8.4-10.2); Carbon Dioxide 24 mmol/L (22-30); Chloride 108 mmol/L (98-107); Glucose 145 mg/dL (74-99); Non-African American GFR(MDRD) >60 (>60 ml/min/1.73 sqM); Potassium 4.2 mmol/L (3.5-5.1); Sodium 141 mmol/L (137-145); Total Bilirubin 0.4 mg/dL (0.2-1.3); Total Protein 7.2 g/dL (6.3-8.2)
[2016-07-28] MEDS: VANCOMYCIN 1,250 MG in SODIUM CHLORIDE 0.9% 250 ML IVPB SCH ×3 (08:58→23:21)
[2016-07-28] MEDS: FAMOTIDINE 20 MG TAB PO SCH (08:58)
[2016-07-28] MEDS: HEPARIN SODIUM,PORCINE 5,000 UNIT/ML 1 ML VIAL SQ SCH ×2 (08:58→20:07)
[2016-07-28] MEDS: methylPREDNISolone SOD SUCCI 40 MG/ML 1 ML VIAL IV SCH ×2 (08:59→20:07)
[2016-07-28] MEDS: NICOTINE 7MG/24HR PATCH TRANSDERM SCH (08:59)
--- NOTE | 2016-07-28 10:27 | P.PN ---
Subjective Patient is evaluated and examined today on the fourth floor. Patient is being seen for cough shortness of breath and wheezing that had started about 2 weeks ago and has progressively gotten worse. The patient is a current smoker and she smokes about 1-2 packs a day for the last 30-35 years. She states that she has a persistent cough and congestion with shortness of breath and her sputum has been brownish tinged. Recently she went to [facility] and was discharged from the ER however she came back yesterday to the [facility] emergency department due to progressively getting worse. In the ER she was noted to have some bronchospasms and was ultimately admitted to the hospital. She was started on IV steroids and antibiotics. Influenza A and B were both negative. Upon examination the patient is sitting up in bed watching TV. She states that she's feeling better, and that her breathing is getting better as well. Objective - Vital Signs Vital signs: Vital Signs Temp 96.3 F L 07/28/16 07:00 Pulse 68 07/28/16 08:05 Resp 16 07/28/16 07:00 BP 122/84 07/28/16 07:00 Pulse Ox 99 07/28/16 07:52 Intake & Output 07/27/16 07/28/16 07/28/16 18:59 06:59 18:59 Intake Total 500 Balance 500 Intake: Oral 500 Other: # Voids 2 2 - Exam GENERAL EXAM: Alert, active, comfortable in no apparent distress. HEAD: Normocephalic. EYES: Normal reaction of pupils, equal size. NOSE: Clear with pink turbinates. THROAT: No erythema or exudates. NECK: No masses, no JVD. CHEST: No chest wall deformity. LUNGS: Bilaterally coarse tight breath sounds with expiratory wheezing. CVS: S1 and S2 normal with no audible mumurs, regular rhythm. ABDOMEN: No hepatosplenomegaly, normal bowel sounds, no guarding or rigidity. EXTREMITIES: No edema noted, pedal pulses palpable. SKIN: No rashes CENTRAL NERVOUS SYSTEM: No focal deficits, tone is normal in all 4 extremities. - Labs CBC & Chem 7: 07/28/16 08:04 07/28/16 08:04 Labs: Abnormal Lab Results - Last 24 Hours (Table) 07/28/16 07/28/16 Range/Units 08:04 08:04 RBC 2.91 L (3.80-5.40) m/uL Hgb 8.8 L (11.4-16.0) gm/dL Hct 28.1 L (34.0-46.0) % Lymphocytes # 0.8 L (1.0-4.8) k/uL Chloride 108 H (98-107) mmol/L BUN 19 H (7-17) mg/dL Glucose 145 H (74-99) mg/dL Albumin 2.5 L (3.5-5.0) g/dL Microbiology - Last 24 Hours (Table) 07/26/16 07:30 Gram Stain - Final Sputum Sputum Culture - Final 07/25/16 15:28 Blood Culture - Preliminary Blood No Growth after 48 hours Assessment and Plan Plan: Assessment Possible atypical pneumonia cannot exclude viral pneumonia Acute exacerbation of COPD Severe hyponatremia of unclear etiology, now improved Current active nicotine abuse Positive blood cultures for Streptococcus pneumoniae Plan is to continue with IV steroids and antibiotics. We will continue with supportive care and breathing treatments. We will monitor labs and adjust treatment as necessary. Infectious disease is on consult for positive blood cultures. We will continue with smoking cessation education and encouragement. Patient also encouraged to ambulate, and cough and deep breathe.
--- NOTE | 2016-07-28 13:28 | P.PN ---
Subjective Patient is wondering when she could be discharged. No documented fever over the last 24 hours. Objective - Vital Signs Vital signs: Vital Signs Temp 96.3 F L 07/28/16 07:00 Pulse 72 07/28/16 11:24 Resp 16 07/28/16 07:00 BP 122/84 07/28/16 07:00 Pulse Ox 99 07/28/16 07:52 Intake & Output 07/27/16 07/28/16 07/28/16 18:59 06:59 18:59 Intake Total 500 Balance 500 Intake: Oral 500 Other: # Voids 2 2 - Exam General: The patient is awake and alert, in no distress Eye: there is normal conjunctiva bilaterally. Neck: The neck is supple, there is no JVD. Cardiovascular: Normal S1-S2, no S3-S4, no murmurs. Respiratory: Lungs with end expiratory wheezing Gastrointestinal: Abdomen is soft, nontender Musculoskeletal: There is no pedal edema. Neurological:. Speech is normal. Skin: Skin is warm and dry - Labs CBC & Chem 7: 07/28/16 08:04 07/28/16 08:04 Labs: Abnormal Lab Results - Last 24 Hours (Table) 07/28/16 07/28/16 Range/Units 08:04 08:04 RBC 2.91 L (3.80-5.40) m/uL Hgb 8.8 L (11.4-16.0) gm/dL Hct 28.1 L (34.0-46.0) % Lymphocytes # 0.8 L (1.0-4.8) k/uL Chloride 108 H (98-107) mmol/L BUN 19 H (7-17) mg/dL Glucose 145 H (74-99) mg/dL Albumin 2.5 L (3.5-5.0) g/dL Microbiology - Last 24 Hours (Table) 07/26/16 07:30 Gram Stain - Final Sputum Sputum Culture - Final 07/25/16 15:28 Blood Culture - Preliminary Blood No Growth after 48 hours Assessment and Plan Plan: 1. Pneumonia: Chest x-ray showing multilobar pneumonia. 2. Acute COPD exacerbation: Continue with steroids and bronchodilators. Pulmonary service following 3. Strep pneumonia bacteremia with negative repeat blood culture awaiting final sensitivity and infectious disease recommendations for antibiotic 3. Mildly elevated LFTs: On admission, now resolved. 4. Nicotine dependence: Patient is down to 7 cigarettes a day. Counseled on smoking cessation for greater than [address] patient on nicotine patch. 5. Hypotension: Patient did receive a fluid bolus in the emergency room. Continue with IV fluids. Monitor blood pressures closely. 6. Positive blood culture Streptococcus pneumoniae. Infectious disease consulted. Repeat blood culture ordered. 7. Severe protein calorie malnutrition: Continue ensure encouraged ambulation. Repeat lab work in the morning. Awaiting blood culture sensitivity and final recommendations from infectious disease for antibiotic
[2016-07-28] MEDS: cefTRIAXone 2,000 MG in SODIUM CHLORIDE 0.9% 100 ML IVPB SCH (20:06)
[2016-07-29] MEDS ORDERED: VANCOMYCIN TROUGH DUE 1 EACH MISC MISCELLANE ONE (07:00)
[2016-07-29] MEDS: IPRATROPIUM-ALBUTEROL 3 ML NEB INHALATION SCH ×2 (07:22→11:22)
--- NOTE | 2016-07-29 07:43 | PN ---
DATE OF SERVICE: 07/28/2016 Reason for follow-up: Strep pneumo bacteremia and pneumonia INTERVAL HISTORY: The patient is afebrile. She is currently breathing comfortably. The patient denies significant chest pain or shortness of breath appears breath or cough. No abdominal pain or any diarrhea. On examination, blood pressure is 119/76 with a pulse of 72, temperature 97.6, she is 98% on room air. General description is a middle-age female lying in bed in no distress. RESPIRATORY SYSTEM: Unlabored breathing. Clear to auscultation anteriorly. HEART: S1, S2. Regular rate and rhythm. Abdomen soft, no tenderness. LABS: Hemoglobin 8.8, white count 7.0 with a BUN of 19, creatinine 0.57. The sensitivity on the strept pneumoniae still pending. DIAGNOSTIC IMPRESSION AND PLAN: Patient with strep pneumo bacteremia, source is pneumonia. Currently on Rocephin and Vanco awaiting for the sensitivity to determine discharge antibiotics. Continue supportive care. MTDD
[2016-07-29 07:59] VITALS: BP 120/77; TEMP 96.6
[2016-07-29] MEDS ORDERED: FERROUS SULFATE 325 MG TAB PO SCH (09:00)
[2016-07-29 09:09] LABS: Basophils % (A) 0 %; CH 29.9; Eosinophils % (A) 0 %; HCT 27.4 % (34.0-46.0); HDW 2.49; HGB 8.7 gm/dL (11.4-16.0); Hypochromasia Slight; Luc % (Auto) 2; Lymphocytes # (A) 0.8 k/uL (1.0-4.8); Lymphocytes % (A) 14 %; MCH 30.8 pg (25.0-35.0); MCHC 31.8 g/dL (31.0-37.0); MCV 96.6 fL (80.0-100.0); Mean Platelet Volume 7.9; Monocytes # (A) 0.3 k/uL (0-1.0); Monocytes % (A) 5 %; Neutrophils # (A) 4.7 k/uL (1.3-7.7); Neutrophils % (A) 79 %; RBC 2.84 m/uL (3.80-5.40); RDW 13.8 % (11.5-15.5); WBC 5.9 k/uL (3.8-10.6); WBC (Perox) 6.73
[2016-07-29] MEDS: VANCOMYCIN 1,250 MG in SODIUM CHLORIDE 0.9% 250 ML IVPB SCH (09:12)
[2016-07-29] MEDS: methylPREDNISolone SOD SUCCI 40 MG/ML 1 ML VIAL IV SCH (09:12)
[2016-07-29] MEDS: HEPARIN SODIUM,PORCINE 5,000 UNIT/ML 1 ML VIAL SQ SCH (09:13)
[2016-07-29 09:24] LABS: ALT 31 U/L (9-52); AST 25 U/L (14-36); Alkaline Phosphatase 58 U/L (38-126); Anion Gap 10 mmol/L; Blood Urea Nitrogen 17 mg/dL (7-17); Calcium 8.7 mg/dL (8.4-10.2); Carbon Dioxide 25 mmol/L (22-30); Chloride 105 mmol/L (98-107); Glucose 109 mg/dL (74-99); Non-African American GFR(MDRD) >60 (>60 ml/min/1.73 sqM); Potassium 4.4 mmol/L (3.5-5.1); Sodium 140 mmol/L (137-145); Total Bilirubin 0.4 mg/dL (0.2-1.3)
[2016-07-29] MEDS: NICOTINE 7MG/24HR PATCH TRANSDERM SCH (09:36)
[2016-07-29] MEDS: FAMOTIDINE 20 MG TAB PO SCH (09:36)
--- NOTE | 2016-07-29 10:51 | P.PN ---
Subjective Patient is evaluated and examined today on the fourth floor. Patient is being seen for cough shortness of breath and wheezing that had started about 2 weeks ago and has progressively gotten worse. The patient is a current smoker and she smokes about 1-2 packs a day for the last 30-35 years. She states that she has a persistent cough and congestion with shortness of breath and her sputum has been brownish tinged. Recently she went to [facility] and was discharged from the ER however she came back yesterday to the [facility] emergency department due to progressively getting worse. In the ER she was noted to have some bronchospasms and was ultimately admitted to the hospital. She was started on IV steroids and antibiotics. Influenza A and B were both negative. Upon examination the patient is sitting up in bed watching TV, and room air. She states that she's feeling better, and that her breathing is getting better as well. She denies any wheezing, coughing, or sputum production. Objective - Vital Signs Vital signs: Vital Signs Temp 96.6 F L 07/29/16 07:00 Pulse 66 07/29/16 10:25 Resp 16 07/29/16 07:00 BP 120/77 07/29/16 07:00 Pulse Ox 99 07/29/16 07:00 Intake & Output 07/28/16 07/29/16 07/29/16 18:59 06:59 18:59 Intake Total 1520 Balance 1520 Weight 59 kg Intake: Oral 1520 Other: # Voids 3 2 - Exam GENERAL EXAM: Alert, active, comfortable in no apparent distress. HEAD: Normocephalic. EYES: Normal reaction of pupils, equal size. NOSE: Clear with pink turbinates. THROAT: No erythema or exudates. NECK: No masses, no JVD. CHEST: No chest wall deformity. LUNGS: Bilaterally clear, tight breath sounds CVS: S1 and S2 normal with no audible mumurs, regular rhythm. ABDOMEN: No hepatosplenomegaly, normal bowel sounds, no guarding or rigidity. EXTREMITIES: No edema noted, pedal pulses palpable. SKIN: No rashes CENTRAL NERVOUS SYSTEM: No focal deficits, tone is normal in all 4 extremities. - Labs CBC & Chem 7: 07/29/16 08:16 07/29/16 08:16 Labs: Abnormal Lab Results - Last 24 Hours (Table) 07/29/16 07/29/16 Range/Units 08:16 08:16 RBC 2.84 L (3.80-5.40) m/uL Hgb 8.7 L (11.4-16.0) gm/dL Hct 27.4 L (34.0-46.0) % Lymphocytes # 0.8 L (1.0-4.8) k/uL Glucose 109 H (74-99) mg/dL Albumin 2.6 L (3.5-5.0) g/dL Microbiology - Last 24 Hours (Table) 07/25/16 15:28 Blood Culture - Preliminary Blood No Growth after 72 hours 07/26/16 07:30 Gram Stain - Final Sputum Sputum Culture - Final Assessment and Plan Plan: Assessment Possible atypical pneumonia cannot exclude viral pneumonia Acute exacerbation of COPD Severe hyponatremia of unclear etiology, now improved Current active nicotine abuse Positive blood cultures for Streptococcus pneumoniae The patient would be cleared for discharge from a pulmonary standpoint. We will continue with supportive care and breathing treatments. We will monitor labs and adjust treatment as necessary. Infectious disease is on consult for positive blood cultures. We will continue with smoking cessation education and encouragement. Patient also encouraged to ambulate, and cough and deep breathe. Patient will follow-up in office within 1 week of discharge.
[2016-07-29 11:06] VITALS: PULSE 67
--- NOTE | 2016-07-29 13:19 | P.DS ---
Providers Date of admission: 07/25/16 03:18 Expected date of discharge: 07/29/16 Attending physician: Bobbi Becerril Consults: 07/25/16 13:43 Consult Physician Routine Consulting Provider: Kameron Mckeon Consult Reason/Comments: pneumonia Do you want consulting provider notified?: Yes 07/25/16 14:47 Consult Physician Routine Consulting Provider: Sophy Trevino Consult Reason/Comments: positive blood culture Do you want consulting provider notified?: Yes Primary care physician: Melonie Alfredo Hospital Course: Discharge diagnosis 1. Pneumonia: Chest x-ray showing multilobar pneumonia. 2. Acute COPD exacerbation: Continue with steroids and bronchodilators. Pulmonary service following 3. Strep pneumonia bacteremia: Source is secondary to her pneumonia 3. Mildly elevated LFTs: On admission, now resolved. 4. Nicotine dependence: Patient is down to 7 cigarettes a day. Counseled on smoking cessation for greater than [address] patient on nicotine patch. 5. Hypotension: Patient did receive a fluid bolus in the emergency room. Continue with IV fluids. Monitor blood pressures closely. 6. Severe protein calorie malnutrition: Continue ensure Hospital course This is a 56-year-old female with a known history of nicotine dependence and COPD. Patient reports she does not take meds at home. She reports that she had recently been at [facility] emergency room and discharged home earlier this week. She reports she was not on any antibiotics. She's been complaining of productive cough with brownish sputum and some shortness of breath. She states that the cough tends of making her gag and causes almost vomit. She presents to the emergency room with a chest x-ray that shows a multilobar pneumonia she was started on Rocephin and azithromycin. She did have a temp of 102. Her white count and lactic acid were normal. Influenza negative and strep screen was negative. Patient patient's antibiotics were adjusted per infectious disease she was on Rocephin and vancomycin. She did have one positive blood culture that did grow Streptococcus pneumoniae and this is likely related to her pneumonia. Infectious diseases recommending 10 more days of Ceftin. Patient is eager for discharge home. She has been educated to quit smoking. Nicotine patch has been ordered. She also was found to have iron deficiency anemia hemoglobin 8.8. She'll be sent home with iron. And recommend checking CBC in 1 week. Patient's symptoms have included improved greatly she is medically stable for discharge. She'll be following up with her PCP, infectious disease, and Dr. Mckeon in 1 week. Patient Condition at Discharge: Stable Plan - Discharge Summary New Discharge Prescriptions: Cefuroxime Axetil [Ceftin] 500 mg PO BID #20 tab Ferrous Sulfate [Iron (65 MG Elemental)] 325 mg PO BID #60 tab Nicotine 7Mg/24Hr Patch [Habitrol] 1 patch TRANSDERM DAILY #30 patch predniSONE 10 mg PO DIRECTED #12 tab Discharge Medication List Naproxen Sodium [Aleve] 220 mg PO DAILY PRN 07/25/16 [History] Cefuroxime Axetil [Ceftin] 500 mg PO BID #20 tab 07/29/16 [Rx] Ferrous Sulfate [Iron (65 MG Elemental)] 325 mg PO BID #60 tab 07/29/16 [Rx] Nicotine 7Mg/24Hr Patch [Habitrol] 1 patch TRANSDERM DAILY #30 patch 07/29/16 [ Rx] predniSONE 10 mg PO DIRECTED #12 tab 07/29/16 [Rx] Follow up Appointment(s)/Referral(s): [facility], [NON-STAFF] - Kameron Mckeon MD [STAFF PHYSICIAN] - 1 Week Melonei Alfredo DO [Primary Care Provider] - 1 Week Sophy Trevino MD [STAFF PHYSICIAN] - 1 Week Patient Instructions/Handouts: How to Stop Smoking (DC), Pneumonia (DC) Activity/Diet/Wound Care/Special Instructions: Diet: regular Activity: as tolerated Discharge Disposition: HOME SELF-CARE
[2016-07-29] MEDS ORDERED: VANCOMYCIN 1,000 MG in SODIUM CHLORIDE 0.9% 250 ML IVPB SCH (16:00)
--- NOTE | 2016-07-29 18:09 | PN ---
DATE OF SERVICE: 07/29/2016 REASON FOR FOLLOWUP: Strep pneumo bacteremia. INTERVAL HISTORY: The patient is afebrile. She has been breathing comfortably. Denies significant chest pain or shortness of breath. No cough, abdominal pain or any diarrhea. On examination, blood pressure is 120/77 with a pulse of 56, temperature 96.6. He is 99% on room air. General description is a middle-aged female lying in bed in no distress. RESPIRATORY SYSTEM: Unlabored breathing. Clear to auscultation anteriorly. HEART: S1, S2. Regular rate and rhythm. ABDOMEN: Soft. No tenderness. LABS: Hemoglobin 8.7, white count 5.9. BUN of 17, creatinine of 0.61. Sensitivity has been finalized with the Strep pneumoniae being a sensitive pathogen. Follow-up blood culture from 07/25 has been negative. DIAGNOSTIC IMPRESSION AND PLAN: Patient with Streptococcus pneumoniae bacteremia. Source is pneumonia. Patient is showing overall clinical improvement. Plan to finish therapy with p.o. Ceftin 500 mg twice a day for another 10 days; prescription was sent to the pharmacy; with outpatient followup. Continue supportive care.
--- NOTE | 2016-08-01 09:23 | CDI ---
In responding to this query, please exercise your independent professional judgment. The [facility] Coding Staff and Clinical Documentation Specialists appreciate your assistance in clarifying documentation, maintaining compliance with coding guidelines, accurately documenting patients condition and capturing severity of illness. The fact that a question is asked does not imply that any particular answer is desired or expected. Communication forms are a method of clarifying documentation and are not made part of the Legal Health Record. Thank you in advance for your clarification. Last Revision, March 2015 Sepsis present on admission L[facility] [address] [facility] [place] [address] Documentation Clarification Form Date: 08/01/2016 8:59:00 AM From: Oumou Mcwilliams Phone: Admit Date: 07/25/2016 3:18:00 AM Patient Name: Yung Tubbs Visit Number: [id number] Discharge Date: 08/01/16 Dr. Nyasia Mcdermott Sepsis documentation in the consult by Dr. Lucien Trevino. Strep pneumonia bacteremia documented in the discharge summary. History/Risk Factors: COPD, smoker, Clinical Indicators: T-102, WBC/Left Shift: WBC-10.6, Neutrophils-9.1 H Lactic acid: 1.0 Blood cultures: Streptococcus pneumonia Vitals signs on admission: P-111, T-102, R-20, BP-94/61 Treatment: IV Rocephin & Vancomycin ID Consult: Yes In your professional opinion, can you please clarify if these findings signify one of the following conditions, whether the condition is POA, and cause, if known? SIRS, without underlying infectious process Sepsis Severe Sepsis Septic Shock Unable to determine Other, please specify * Identify the (suspected) organism * Link or clarify if there is associated (due to/with): - Organ failure - Shock SIRS Criteria: 2 or more of the following may indicate SIRS Temperature < 96.8F(36C) or > 101.0F (38C) Heart Rate > 90 bpm Respiratory Rate > 20 breaths/min or PaCO2 < 32 mmHg White Blood Cell Count > 12,000 or < 4,000 cells/mm3 or > 10% bands Please document in your progress notes and discharge summary in order to capture severity of illness and risk of mortality. Include clinical findings that support your diagnosis. FYI: Press F11 to launch patient chart. TYREE Muller, CCS, AHIMA Certified I-10 Physician Office Rep/Nuevo Physician Office Rep II Wrong Physician Patient is Gavino boo. RACHELLE
== END 2016-07-29 13:45 | disposition home health service (06) | DRG 871 ==
LOC: EC 01:31 → 4MS4W 03:18
PROVIDERS: ADMIT Internal Medicine; ATTEND Internal Medicine
DX: A40.3 Sepsis due to Streptococcus pneumoniae (principal); J18.9 Pneumonia, unspecified organism; E43 Unspecified severe protein-calorie malnutrition; I95.9 Hypotension, unspecified; E87.1 Hypo-osmolality and hyponatremia; J44.0 Chronic obstructive pulmonary disease with (acute) lower respiratory infection; J44.1 Chronic obstructive pulmonary disease with (acute) exacerbation; F17.210 Nicotine dependence, cigarettes, uncomplicated; D50.9 Iron deficiency anemia, unspecified; J98.01 Acute bronchospasm
CPT/HCPCS: 36415; 71020; 71275; 80053; 80202; 81001; 82728; 83540; 83550; 83605; 85025; 85652; 87040; 87070; 87077; 87081; 87086; 87186; 87205; 87430; 87502; 94640; 94760; 96361; 96365; 96375; 99285

== ENCOUNTER → 2016-09-04 | Outpatient (CLI) | payer OTHER ==
--- NOTE | 2016-09-04 13:52 | FL ---
EXAMINATION: Cervical and Thoracic Esophagram DATE OF EXAM: 09/04/2016 10:42 AM CLINICAL INDICATION: 56-year-old female with dysphagia, gagging on solids and liquids for 6 months an d history of acid reflux. Patient also reports endoscopy years ago which found a gastric ulcer. Some recent improvement in symptoms after beginning antacid medication. COMPARISON: None Total Fluoroscopy Time: 2 minutes 36 seconds FINDINGS: The swallowing mechanism is normal and hypopharyngeal anatomy is preserved. The patient could only tolerate small slow swallows which limits adequate coating and distention of t he esophagus. Mucosal evaluation is secondarily slightly limited. There is normal course and caliber of the thoracic esophagus with mild tertiary peristaltic contracti ons seen. No fixed narrowing or definite filling defect is encountered. There is a small to moderate-sized hiatal hernia which fills with contrast during Valsalva and positi onal maneuvers do no roosevelt gastroesophageal reflux is seen. IMPRESSION: 1. The patient could only tolerate small, slow swallows which limits assessment of the mucosa. 2. Within this limitation, no definite suspicious filling defect or narrowing. 3. Mild tertiary peristalsis and small to moderate sized hiatal hernia. 4. While there is reflux into and filling of the hernia with Valsalva maneuvers, no roosevelt gastroesoph ageal reflux is seen during the course of the exam. This does not exclude the possibility of GERD in this patient.
== END | disposition home or self-care (01) ==
LOC: RADFLWHC 09:13
PROVIDERS: ATTEND Family Medicine
DX: K44.9 Diaphragmatic hernia without obstruction or gangrene (principal); K22.4 Dyskinesia of esophagus; Z88.0 Allergy status to penicillin
CPT/HCPCS: 74220

== ENCOUNTER → 2016-09-05 | Outpatient (CLI) | payer OTHER ==
--- NOTE | 2016-09-05 10:59 | CT ---
EXAMINATION TYPE: CT chest wo con DATE OF EXAM: 09/05/2016 8:24 AM COMPARISON: 07/25/2016 HISTORY: Solitary pulmonary nodule CT DLP: 452 mGycm, Automated exposure control for dose reduction was used. CONTRAST: Performed injected with 0 mL of Omnipaque 300. TECHNIQUE: Axial images were obtained at 5 mm thick sections. Reconstructed images are reviewed on [employer] computer in the coronal plane. FINDINGS: Portion of the thyroid visualized is normal. A 1.0 cm nodule not excluded in the posterior medial left lung base. Atelectasis could be considered. Follow-up is recommended. Mild pneumonitis changes within the right middle lobe and lingula are pres ent. Some apical thickening is present. No enlarged mediastinal or hilar adenopathy is evident. The ascending aorta diameter at the level o f the main pulmonary artery is 4.0 cm. The main pulmonary artery diameter at the bifurcation is 2.[address] sections are obtained through the upper abdomen. Abdomen is essentially unremarkable. Hiat al hernia is not excluded. Previous pleural effusion is resolved. Previous consolidations have resolved. IMPRESSIONS: 1. Small nodule in the posterior medial left lung base may be present. This could be atelectasis. 2. Previous pleural effusion and consolidations have resolved.
== END ==
LOC: RADCTMAIN 08:00
PROVIDERS: ATTEND Internal Medicine Sleep Medicine
DX: R91.1 Solitary pulmonary nodule (principal); J90 Pleural effusion, not elsewhere classified
CPT/HCPCS: 71250

== ENCOUNTER → 2016-10-30 | Outpatient (CLI) | payer OTHER ==
--- NOTE | 2016-10-30 13:08 | XR ---
Lumbosacral spine HISTORY: Low back pain 5 views of the lumbosacral spine No comparisons There is a slight spinal curvature. Bone mineralization is reduced. No evident spondylolysis. Anterol isthesis grade 1 L3-4. Loss of disc height present at L4-5, L5-S1. Sclerosis present in the posterior elements. There is multilevel spondylosis. IMPRESSION: Degenerative disc disease, facet arthropathy. Osteopenia. Mild spinal curvature.
== END | disposition home or self-care (01) ==
LOC: RADXRMAIN 11:42
PROVIDERS: ATTEND Physical Medicine & Rehabilitation
DX: M51.37 Other intervertebral disc degeneration, lumbosacral region (principal); M46.07 Spinal enthesopathy, lumbosacral region; M85.88 Other specified disorders of bone density and structure, other site; M41.87 Other forms of scoliosis, lumbosacral region
CPT/HCPCS: 72110

== ENCOUNTER 2016-12-01 20:09 | Emergency (ER) | payer OTHER ==
[2016-12-01 20:17] VITALS: TEMP 98.1
[2016-12-01] MEDS ORDERED: MAG HYDROX/AL HYDROX/SIMETH 30 ML, HYOSCYAMINE ELIXIR 10 ML, CIMETIDINE HCL 300 MG PO STA ×3 (20:26)
[2016-12-01] MEDS ORDERED: SODIUM CHLORIDE 0.9% 1,000 ML IV STA (20:26)
--- NOTE | 2016-12-01 20:31 | ED ---
Abdominal Pain HPI - General Chief Complaint: Abdominal Pain Stated Complaint: abdominal pain Time Seen by Provider: 12/01/16 20:19 Source: patient, RN notes reviewed Mode of arrival: ambulatory Limitations: no limitations - History of Present Illness Initial Comments: 56-year-old female presents emergency Department chief complaint epigastric pain 3 days. Patient states that side improving and she is concerned as she normally takes Percocet 4 times daily and it's not helping her symptoms. She states that she does have a history of hiatal hernia diagnosed on barium swallow here. Patient states that she does also have gastric ulcers in which she states that she was diagnosed with this in 2014 on EGD. She does take antiacids daily. Patient denies chest pain or shortness breath. Patient denies any nausea vomiting diarrhea or constipation. She is normally takes something for her bowels secondary to taking Percocet and iron. Patient states that she had no abdominal surgeries. - Related Data Home Medications Medication Instructions Recorded Confirmed Albuterol Inhaler [Ventolin Hfa 2 puff INHALATION RT-QID PRN 12/01/16 12/01/16 Inhaler] Albuterol Nebulized [Ventolin 2.5 mg INHALATION RT-TID PRN 12/01/16 12/01/16 Nebulized] Biotin 5,000 mcg PO DAILY 12/01/16 12/01/16 Ferrous Sulfate [Feosol] 325 mg PO DAILY 12/01/16 12/01/16 Fluticasone Nasal [place] [Flonase 2 spr EA NOSTRIL DAILY PRN 12/01/16 12/01/16 Nasal [place]] Fluticasone/Salmeterol [Advair 1 puff INHALATION RT-BID 12/01/16 12/01/16 500-50 Diskus] Loratadine [Claritin] 10 mg PO DAILY 12/01/16 12/01/16 Montelukast [Singulair] 10 mg PO HS 12/01/16 12/01/16 Pantoprazole Sodium [Protonix] 40 mg PO DAILY 12/01/16 12/01/16 buPROPion XL [Wellbutrin Xl] 150 mg PO BID 12/01/16 12/01/16 oxyCODONE HCL/ACETAMINOPHEN 1 tab PO QID 12/01/16 12/01/16 [Percocet 10-325 mg] Previous Rx's Medication Instructions Recorded Sucralfate [Carafate] 1 gm PO BID #14 tablet 12/01/16 Allergies Allergy/AdvReac Type Severity Reaction Status Date / Time Penicillins Allergy Unknown Verified 12/01/16 20:18 Childhood Review of Systems ROS Statement: Those systems with pertinent positive or pertinent negative responses have been documented in the HPI. ROS Other: All systems not noted in ROS Statement are negative. Past Medical History Past Medical History: COPD Additional Past Medical History / Comment(s): Gastric Ulcer History of Any Multi-Drug Resistant Organisms: None Reported Past Surgical History: Orthopedic Surgery Additional Past Surgical History / Comment(s): breast Past Anesthesia/Blood Transfusion Reactions: No Reported Reaction Past Psychological History: No Psychological Hx Reported Smoking Status: Current every day smoker Past Alcohol Use History: Occasional Past Drug Use History: None Reported - Past Family History Father Family Medical History: No Reported History General Exam Limitations: no limitations General appearance: alert, in no apparent distress Head exam: Present: atraumatic, normocephalic, normal inspection Eye exam: Present: normal appearance, PERRL, EOMI. Absent: scleral icterus, conjunctival injection, periorbital swelling Respiratory exam: Present: normal lung sounds bilaterally. Absent: respiratory distress, wheezes, rales, rhonchi, stridor Cardiovascular Exam: Present: regular rate, normal rhythm, normal heart sounds. Absent: systolic murmur, diastolic murmur, rubs, gallop, clicks GI/Abdominal exam: Present: soft, tenderness (minimal epigastric tenderness), normal bowel sounds. Absent: distended, guarding, rebound, rigid Back exam: Absent: CVA tenderness (R), CVA tenderness (L) Neurological exam: Present: alert, oriented X3, CN II-XII intact Skin exam: Present: warm, dry, intact, normal color. Absent: rash Course Vital Signs 12/01/16 20:14 Temperature 98.1 F Pulse Rate 90 Respiratory 18 Rate Blood Pressure 123/89 O2 Sat by Pulse 98 Oximetry - Reevaluation(s) Reevaluation #1: 12/01/16 21:10 patient had some improvement after GI cocktail. Medical Decision Making - Medical Decision Making 56-year-old female presented for epigastric discomfort. This most likely is related to her ulcer gastritis. Patient lab work does not show any acute abnormality. Patient does have a hiatal hernia. Patient we given Carafate as she currently is on antiacids. Patient will follow-up with her specialist that performed her scope. Return parameters were discussed. - Lab Data Result diagrams: 12/01/16 20:40 12/01/16 20:40 Lab Results 12/01/16 12/01/16 12/01/16 Range/Units 20:40 20:40 20:40 WBC 7.9 (3.8-10.6) k/uL RBC 4.17 (3.80-5.40) m/uL Hgb 12.7 (11.4-16.0) gm/dL Hct 37.4 (34.0-46.0) % MCV 89.7 (80.0-100.0) fL MCH 30.5 (25.0-35.0) pg MCHC 34.0 (31.0-37.0) g/dL RDW 13.5 (11.5-15.5) % Plt Count 241 (150-450) k/uL Neutrophils % 59 % Lymphocytes % 29 % Monocytes % 5 % Eosinophils % 4 % Basophils % 0 % Neutrophils # 4.7 (1.3-7.7) k/uL Lymphocytes # 2.3 (1.0-4.8) k/uL Monocytes # 0.4 (0-1.0) k/uL Eosinophils # 0.3 (0-0.7) k/uL Basophils # 0.0 (0-0.2) k/uL Sodium 139 (137-145) mmol/L Potassium 3.8 (3.5-5.1) mmol/L Chloride 106 (98-107) mmol/L Carbon Dioxide 23 (22-30) mmol/L Anion Gap 10 mmol/L BUN 18 H (7-17) mg/dL Creatinine 0.80 (0.52-1.04) mg/dL Est GFR (MDRD) Af Amer >60 (>60 ml/min/1.73 sqM) Est GFR (MDRD) Non-Af >60 (>60 ml/min/1.73 sqM) Glucose 119 H (74-99) mg/dL Calcium 9.2 (8.4-10.2) mg/dL Total Bilirubin 0.2 (0.2-1.3) mg/dL AST 20 (14-36) U/L ALT 29 (9-52) U/L Alkaline Phosphatase 69 (38-126) U/L Total Protein 8.1 (6.3-8.2) g/dL Albumin 3.8 (3.5-5.0) g/dL Amylase 68 (30-110) U/L Lipase 163 (23-300) U/L Urine Color Yellow Urine Appearance Clear (Clear) Urine pH 5.5 (5.0-8.0) Ur Specific [place] 1.016 (1.001-1.035) Urine Protein Negative (Negative) Urine Glucose (UA) Negative (Negative) Urine Ketones Negative (Negative) Urine Blood Negative (Negative) Urine Nitrite Negative (Negative) Urine Bilirubin Negative (Negative) Urine Urobilinogen <2.0 (<2.0) mg/dL Ur Leukocyte Esterase Negative (Negative) Disposition Clinical Impression: Gastritis Disposition: HOME SELF-CARE Condition: Stable Instructions: Gastritis (ED) Additional Instructions: Please return to the Emergency Department if symptoms worsen or any other concerns. Prescriptions: Sucralfate [Carafate] 1 gm PO BID #14 tablet Referrals: Melonie Alfredo DO [Primary Care Provider] - 1-2 days Time of Disposition: 21:12
[2016-12-01 20:50] LABS: Appearance,Urine Clear (Clear); Basophils % (A) 0 %; Bilirubin,Urine Negative (Negative); CH 30.6; CHCM 34.2; Eosinophils # (A) 0.3 k/uL (0-0.7); Eosinophils % (A) 4 %; Glucose,Urine (UA) Negative (Negative); HCT 37.4 % (34.0-46.0); HDW 2.41; HGB 12.7 gm/dL (11.4-16.0); Ketones,Urine Negative (Negative); Leukocyte Esterase,Urine Negative (Negative); Luc # (Auto) 0.18; Luc % (Auto) 2; Lymphocytes # (A) 2.3 k/uL (1.0-4.8); Lymphocytes % (A) 29 %; MCH 30.5 pg (25.0-35.0); MCV 89.7 fL (80.0-100.0); Mean Platelet Volume 7.7; Monocytes # (A) 0.4 k/uL (0-1.0); Monocytes % (A) 5 %; Neutrophils # (A) 4.7 k/uL (1.3-7.7); Neutrophils % (A) 59 %; Nitrite,Urine Negative (Negative); PH, Urine 5.5 (5.0-8.0); Protein,Urine Negative (Negative); RBC 4.17 m/uL (3.80-5.40); RDW 13.5 % (11.5-15.5); Specific Gravity,Urine 1.016 (1.001-1.035); UA Billing (MACRO vs. MICRO) CHEM; Urobilinogen,Urine <2.0 mg/dL (<2.0); WBC 7.9 k/uL (3.8-10.6); WBC (Perox) 7.32
[2016-12-01 20:58] LABS: ALT 29 U/L (9-52); AST 20 U/L (14-36); Alkaline Phosphatase 69 U/L (38-126); Amylase 68 U/L (30-110); Anion Gap 10 mmol/L; Blood Urea Nitrogen 18 mg/dL (7-17); Calcium 9.2 mg/dL (8.4-10.2); Carbon Dioxide 23 mmol/L (22-30); Chloride 106 mmol/L (98-107); Glucose 119 mg/dL (74-99); Non-African American GFR(MDRD) >60 (>60 ml/min/1.73 sqM); Potassium 3.8 mmol/L (3.5-5.1); Sodium 139 mmol/L (137-145); Total Bilirubin 0.2 mg/dL (0.2-1.3); Total Protein 8.1 g/dL (6.3-8.2)
--- NOTE | 2016-12-01 21:10 | XR ---
EXAMINATION TYPE: XR KUB DATE OF EXAM: 12/01/2016 COMPARISON: NONE HISTORY: Epigastric pain TECHNIQUE: 2 views FINDINGS: Bowel gas pattern is normal. There is no sign of intestinal obstruction or pneumoperitoneum . Fecal pattern is normal. There is an IUD noted. There are no pathologic calcifications over the kid neys. Lung bases are clear. IMPRESSION: Nonacute abdomen.
[2016-12-01 21:27] VITALS: BP 150/85; PULSE 68; RESP 16
== END 2016-12-01 21:26 | disposition home or self-care (01) ==
LOC: EC 20:09
DX: K29.70 Gastritis, unspecified, without bleeding (principal); K44.9 Diaphragmatic hernia without obstruction or gangrene; J44.9 Chronic obstructive pulmonary disease, unspecified; F17.200 Nicotine dependence, unspecified, uncomplicated; Z79.891 Long term (current) use of opiate analgesic; Z79.51 Long term (current) use of inhaled steroids; Z88.0 Allergy status to penicillin; Z87.19 Personal history of other diseases of the digestive system
CPT/HCPCS: 36415; 74000; 80053; 81003; 82150; 83690; 85025; 96360; 99284

== ENCOUNTER → 2017-09-11 | Outpatient (CLI) | payer OTHER ==
--- NOTE | 2017-09-11 12:12 | CT ---
EXAMINATION TYPE: CT chest wo con DATE OF EXAM: 09/11/2017 COMPARISON: 03/06/2017 HISTORY: Pulmonary nodule CT DLP: 142.8 mGycm, Automated exposure control for dose reduction was used. CONTRAST: Performed injected with 0 mL of Isovue 300. TECHNIQUE: Axial images were obtained at 5 mm thick sections. Reconstructed images are reviewed on [employer] computer in the coronal plane. FINDINGS: Portion of the thyroid visualized is normal. There is a area of increased density which is tenting the pleural margin within the lingula and the l eft midlung. This measures 0.7 cm. Series 4 image 32. Slightly more superior is a spiculated density measuring 0.6 cm. Series 4 image 27. There is a small nodule in the periphery of the right midlung. S eries 4 image 23. This measures 0.5 cm. There is some scattered small areas of groundglass opacity an d pneumonitis within the right lung. The density at the base of the lingula currently measures approximately 1.2 cm in pleural base which is slightly larger than the comparison. Consider additional workup with PET CT. No enlarged mediastinal or hilar adenopathy is evident. The ascending aorta diameter at the level o f the main pulmonary artery is 4.0 cm. The main pulmonary artery diameter at the bifurcation is 2.[address] sections are obtained through the upper abdomen. Abdomen is essentially unremarkable. Smal l hiatal hernia is present. IMPRESSIONS: 1. The left basilar nodule adjacent to the pleural margin has increased in size from 1.0 to 1.2 cm on the current examination. Additional evaluation with PET/CT is recommended. 2. Couple small areas of increased density within the lingula and within the periphery of the right m idlung. Findings are nonspecific. Follow-up CT chest in 6 months of these lesions is recommended.
== END | disposition home or self-care (01) ==
LOC: RADCTMAIN 10:55
PROVIDERS: ATTEND Internal Medicine Sleep Medicine
DX: R91.8 Other nonspecific abnormal finding of lung field (principal)
CPT/HCPCS: 71250

== ENCOUNTER → 2017-09-20 | Outpatient (CLI) | payer OTHER ==
--- NOTE | 2017-09-21 15:25 | PE ---
EXAMINATION TYPE: PET CT fusion skull to thigh DATE OF EXAM: 09/20/2017 CLINICAL HISTORY: 57-year-old female with solitary pulmonary nodule, left lung TECHNIQUE: Following the intravenous administration of 10.0 mCi of F-18 FDG, whole body images are performed from the skull base to the midthigh. Images are reviewed on the computer in the coronal, a xial, and sagittal planes. Reconstructed rotating images are created on independent workstation and reviewed on the computer. A localization and attenuation correction CT is performed in conjunction with the PET scan. Glucose level: 89 mg/dL CTDI: 2.76 mGy DLP: 245.40 mGy-cm Injection site: Right antecubital fossa COMPARISON: CT chest 09/11/2017, 09/05/2016, 07/25/2016 FINDINGS: PET: Physiologic FDG uptake within the neck. A 9 mm nodular area of groundglass in the right upper lobe axial image 78 shows no discrete FDG uptak e. It was present back on 09/05/2016. There is interstitial scarring and some nodular interstitial density within the anterior mid to lower lungs and some scattered endobronchial plugging in the basilar right middle lobe and inferior lingul a. A 9 mm inferior lingular pulmonary nodule shows no discrete FDG uptake and appears less pronounced as compared to 09/11/2017 where is measured at 1.2 cm. There is physiologic FDG uptake within the chest. Average liver SUV 2.3. Asymmetric increased excreting FDG throughout the right ureter questionable clinical significance giv en the lack of hydronephrosis on either side. Physiologic FDG uptake is otherwise seen in the abdomen and pelvis. ATTENUATION CORRECTION CT: Visualized paranasal sinuses and mastoid air cells are clear. No cervical lymphadenopathy. The heart is upper limits of normal in size without pericardial effusion. Ascending aorta ectatic at 3.9 cm. Conventional arch vessel branching anatomy. No thoracic lymphadenopathy. There is mild centr ilobular emphysema. No consolidation or pleural effusion. There is a moderate-sized hilar hernia. No dilated small bowel, free fluid, or free air. Scattered mi ld stool. No mesenteric or retroperitoneal lymphadenopathy. Sigmoid diverticulosis. An IUD is present. Retroverted uterus. Some soft tissue prominence at the cervix. Bladder activity o bscures this region on PET. Bladder nondistended. No abnormal fluid collection in the pelvis. Bones: Mild degenerative change of the hips. Additional degenerative changes mid to lower lumbar spin e. IMPRESSION: 1. Inferior lingular nodule shows no discrete FDG uptake and is somewhat less pronounced (9mm) as co mpared to 09/11/2017 (1.2 cm, previously). A benign etiology is favored. This can be reassessed at the patient's 6 month follow-up as recommended on the 09/11/2017 exam. 2. No suspicious hypermetabolism to suggest malignancy. 3. Retroverted uterus with IUD. There is some soft tissue prominence to the cervix which may be norm al for this patient. Correlate with findings on Pap smear and physical exam. 4. COPD with mild emphysema. There are some nodular interstitial densities anterior mid and lower timmy gs and some endobronchial plugging and mild bronchiectasis right middle lobe and inferior lingula. Fi ndings likely reflect chronic postinflammatory sequela. Correlate to exclude indolent LYNNE infection. 4. Moderate-sized hilar hernia. Sigmoid diverticulosis.
== END | disposition home or self-care (01) ==
LOC: RADPETMAIN 10:22
PROVIDERS: ATTEND Internal Medicine Sleep Medicine
DX: R91.1 Solitary pulmonary nodule (principal); N85.4 Malposition of uterus; J43.9 Emphysema, unspecified; R91.8 Other nonspecific abnormal finding of lung field; J47.9 Bronchiectasis, uncomplicated; K44.9 Diaphragmatic hernia without obstruction or gangrene; R09.89 Other specified symptoms and signs involving the circulatory and respiratory systems; K57.30 Diverticulosis of large intestine without perforation or abscess without bleeding; Z97.5 Presence of (intrauterine) contraceptive device
CPT/HCPCS: 78815; A9552

== ENCOUNTER 2019-04-04 15:51 | Inpatient (IN) | payer OTHER ==
--- NOTE | 2019-04-04 16:43 | ED ---
General Adult HPI - General Chief complaint: Upper Respiratory Infection Stated complaint: RANDEE,Back Pain Time Seen by Provider: 04/04/19 16:24 Source: patient Mode of arrival: ambulatory Limitations: no limitations - History of Present Illness Initial comments: Dictation was produced using [employer] dictation software. please excuse any g rammatical, word or spelling errors. Chief Complaint: 59-year-old female past medical history of COPD presents with with cough, thoracic back pain and difficulty in breathing. History of Present Illness: 59-year-old female she has been having these symptoms for the last several days. She was seen by other medical personnel and started on antibiotics and inhaler. She states that she's had pneumonia in the past and is concerned that today she is worried that she is experiencing pneu monia again. Patient states she's been feeling feverish and cold. She's been using several warm blankets for comfort. Patient was on antibiotics provided by prior care physician. She was on a course of azithromycin. She continues to use cigarettes. He does complain of some thoracic back pain. She does complain of nasal congestion and rhinorrhea. The ROS documented in this emergency department record has been reviewed and confirmed by me. Those systems with pertinent positive or negative responses have been documented in the HPI. All other systems are other negative and/or noncontributory. PHYSICAL EXAM: General Impression: Alert and oriented x3, not in acute distress, coughing HEENT: Normocephalic atraumatic, extra-ocular movements intact, pupils equal and reactive to light bilaterally, mucous membranes moist, no oropharyngeal erythema or exudates Cardiovascular: Heart regular rate and rhythm, S1&S2 audible, no murmurs, rubs or gallops Chest: Diffuse wheezing, tightness to palpation to the right inferior scapular area Abdomen: Bowel sounds present, abdomen soft, non-tender, non-distended, no organomegaly Musculoskeletal: Pulses present and equal in all extremities, no peripheral edema Motor: no focal deficits noted Neurological: CN II-XII grossly intact, no focal motor or sensory deficits noted Skin: Intact with no visualized rashes Psych: Normal affect and mood ED course: 59-year-old female presents with respiratory infectious symptoms. Upon arrival shows temperature 99.7, heart 101. She completed a course of outpatient treatment and however still symptomatic. Laboratory evaluation obtained. Leukocytosis of 18.9, metabolic panel shows findings within acceptable limits. No gap acidosis. Urinalysis is negative. Influenza test negative. Chest x-ray shows infiltrate to the right lower lung base. Clinical presentation consistent with pneumonia failed outpatient treatment. Given the patient had undergone course of antibiotics already we will start her on broad-spectrum antibiotics. Patient is understandable and agreeable to plan. Blood cultures pending. Patient GIVEN DuoNeb and Decadron for treatment of COPD exacerbation. EKG interpretation: Ventricular rate 95, normal sinus rhythm, OK interval 150, QRS 70, QTC 402. No OK prolongation, no QTC prolongation, no ST or T-wave changes noted. No old EKG for comparison Overall, this EKG is unremarkable - Related Data Home Medications Medication Instructions Recorded Confirmed Albuterol Nebulized [Ventolin 2.5 mg INHALATION RT-TID PRN 12/01/16 02/02/18 Nebulized] Fluticasone Nasal [place] [Flonase 2 spr EA NOSTRIL DAILY PRN 12/01/16 02/02/18 Nasal [place]] Pantoprazole Sodium [Protonix] 40 mg PO DAILY 12/01/16 02/02/18 oxyCODONE HCL/ACETAMINOPHEN 1 tab PO QID 12/01/16 02/02/18 [Percocet 10-325 mg] Meloxicam [Mobic] 7.5 mg PO DAILY 01/30/18 02/02/18 Allergies Allergy/AdvReac Type Severity Reaction Status Date / Time Penicillins Allergy Unknown Verified 04/04/19 17:55 Childhood Review of Systems ROS Statement: Those systems with pertinent positive or pertinent negative responses have been documented in the HPI. ROS Other: All systems not noted in ROS Statement are negative. Past Medical History Past Medical History: COPD, Musculoskeletal Disorder, Osteoarthritis (OA) Additional Past Medical History / Comment(s): Hx. Gastric Ulcer, hiatal hernia, back, neck & hip pain, recent abd. pain History of Any Multi-Drug Resistant Organisms: None Reported Past Surgical History: Breast Surgery Additional Past Surgical History / Comment(s): breast biopsy, EGD, colonoscopy Past Anesthesia/Blood Transfusion Reactions: No Reported Reaction Past Psychological History: No Psychological Hx Reported Smoking Status: Current every day smoker Past Alcohol Use History: Occasional Past Drug Use History: None Reported - Past Family History Father Family Medical History: No Reported History General Exam Limitations: no limitations Course Vital Signs 04/04/19 15:51 Temperature 99.7 F H Pulse Rate 101 H Respiratory 18 Rate Blood Pressure 120/81 O2 Sat by Pulse 98 Oximetry Medical Decision Making - Lab Data Result diagrams: 04/04/19 17:25 04/04/19 17:25 Lab Results 04/04/19 04/04/19 04/04/19 Range/Units 16:30 16:59 17:25 WBC (3.8-10.6) k/uL RBC (3.80-5.40) m/uL Hgb (11.4-16.0) gm/dL Hct (34.0-46.0) % MCV (80.0-100.0) fL MCH (25.0-35.0) pg MCHC (31.0-37.0) g/dL RDW (11.5-15.5) % Plt Count (150-450) k/uL Neutrophils % % Lymphocytes % % Monocytes % % Eosinophils % % Basophils % % Neutrophils # (1.3-7.7) k/uL Lymphocytes # (1.0-4.8) k/uL Monocytes # (0-1.0) k/uL Eosinophils # (0-0.7) k/uL Basophils # (0-0.2) k/uL Sodium 134 L (137-145) mmol/L Potassium 4.3 (3.5-5.1) mmol/L Chloride 102 (98-107) mmol/L Carbon Dioxide 24 (22-30) mmol/L Anion Gap 8 mmol/L BUN 18 H (7-17) mg/dL Creatinine 0.71 (0.52-1.04) mg/dL Est GFR (CKD-EPI)AfAm >90 (>60 ml/min/1.73 sqM) Est GFR (CKD-EPI)NonAf >90 (>60 ml/min/1.73 sqM) Glucose 104 H (74-99) mg/dL Calcium 9.1 (8.4-10.2) mg/dL Magnesium 1.6 (1.6-2.3) mg/dL Urine Color Light Yellow Urine Appearance Clear (Clear) Urine pH 5.0 (5.0-8.0) Ur Specific [place] 1.012 (1.001-1.035) Urine Protein Negative (Negative) Urine Glucose (UA) Negative (Negative) Urine Ketones Negative (Negative) Urine Blood Negative (Negative) Urine Nitrite Negative (Negative) Urine Bilirubin Negative (Negative) Urine Urobilinogen <2.0 (<2.0) mg/dL Ur Leukocyte Esterase Negative (Negative) Influenza Type A RNA Not Detected (Not Detectd) Influenza Type B (PCR) Not Detected (Not Detectd) 04/04/19 Range/Units 17:25 WBC 18.9 H (3.8-10.6) k/uL RBC 4.06 (3.80-5.40) m/uL Hgb 12.4 (11.4-16.0) gm/dL Hct 37.5 (34.0-46.0) % MCV 92.4 (80.0-100.0) fL MCH 30.6 (25.0-35.0) pg MCHC 33.2 (31.0-37.0) g/dL RDW 12.5 (11.5-15.5) % Plt Count 212 (150-450) k/uL Neutrophils % 91 % Lymphocytes % 4 % Monocytes % 3 % Eosinophils % 1 % Basophils % 0 % Neutrophils # 17.1 H (1.3-7.7) k/uL Lymphocytes # 0.8 L (1.0-4.8) k/uL Monocytes # 0.6 (0-1.0) k/uL Eosinophils # 0.2 (0-0.7) k/uL Basophils # 0.1 (0-0.2) k/uL Sodium (137-145) mmol/L Potassium (3.5-5.1) mmol/L Chloride (98-107) mmol/L Carbon Dioxide (22-30) mmol/L Anion Gap mmol/L BUN (7-17) mg/dL Creatinine (0.52-1.04) mg/dL Est GFR (CKD-EPI)AfAm (>60 ml/min/1.73 sqM) Est GFR (CKD-EPI)NonAf (>60 ml/min/1.73 sqM) Glucose (74-99) mg/dL Calcium (8.4-10.2) mg/dL Magnesium (1.6-2.3) mg/dL Urine Color Urine Appearance (Clear) Urine pH (5.0-8.0) Ur Specific [place] (1.001-1.035) Urine Protein (Negative) Urine Glucose (UA) (Negative) Urine Ketones (Negative) Urine Blood (Negative) Urine Nitrite (Negative) Urine Bilirubin (Negative) Urine Urobilinogen (<2.0) mg/dL Ur Leukocyte Esterase (Negative) Influenza Type A RNA (Not Detectd) Influenza Type B (PCR) (Not Detectd) Disposition Clinical Impression: Pneumonia, COPD exacerbation Disposition: ADMITTED IP TO THIS HOSP Condition: Fair Referrals: Melonie Alfredo DO [Primary Care Provider] - 1-2 days Decision Time: 18:16
[2019-04-04 17:19] LABS: Appearance,Urine Clear (Clear); Bilirubin,Urine Negative (Negative); Blood,Urine Negative (Negative); Color,Urine Light Yellow; Glucose,Urine (UA) Negative (Negative); Ketones,Urine Negative (Negative); Leukocyte Esterase,Urine Negative (Negative); Nitrite,Urine Negative (Negative); Protein,Urine Negative (Negative); Specific Gravity,Urine 1.012 (1.001-1.035); Urobilinogen,Urine <2.0 mg/dL (<2.0)
[2019-04-04 17:45] LABS: Basophils # (A) 0.1 k/uL (0-0.2); Basophils % (A) 0 %; Eosinophils # (A) 0.2 k/uL (0-0.7); Eosinophils % (A) 1 %; HCT 37.5 % (34.0-46.0); HGB 12.4 gm/dL (11.4-16.0); Lymphocytes # (A) 0.8 k/uL (1.0-4.8); Lymphocytes % (A) 4 %; MCH 30.6 pg (25.0-35.0); MCHC 33.2 g/dL (31.0-37.0); MCV 92.4 fL (80.0-100.0); Mean Platelet Volume 7.2; Monocytes # (A) 0.6 k/uL (0-1.0); Monocytes % (A) 3 %; Neutrophils # (A) 17.1 k/uL (1.3-7.7); Neutrophils % (A) 91 %; Platelet Count 212 k/uL (150-450); RBC 4.06 m/uL (3.80-5.40); RDW 12.5 % (11.5-15.5); WBC 18.9 k/uL (3.8-10.6)
[2019-04-04 17:58] LABS: African American GFR (CKD) >90 (>60 ml/min/1.73 sqM); Anion Gap 8 mmol/L; Blood Urea Nitrogen 18 mg/dL (7-17); Calcium 9.1 mg/dL (8.4-10.2); Carbon Dioxide 24 mmol/L (22-30); Chloride 102 mmol/L (98-107); Glucose 104 mg/dL (74-99); Magnesium 1.6 mg/dL (1.6-2.3); Potassium 4.3 mmol/L (3.5-5.1); Sodium 134 mmol/L (137-145)
--- NOTE | 2019-04-04 18:07 | XR ---
EXAMINATION TYPE: XR chest 2V DATE OF EXAM: 04/04/2019 COMPARISON: 07/26/2016 INDICATION: Cough TECHNIQUE: Frontal and lateral views of the chest are obtained. FINDINGS: The heart size is normal. The pulmonary vasculature is normal. There is minimal infiltrate at the right costophrenic angle. Co rrelate for pneumonia and atelectasis. Small hiatal hernia is present IMPRESSION: 1. Right costophrenic angle atelectasis or pneumonia. 2. Hiatal hernia
[2019-04-04] MEDS ORDERED: CEFEPIME 2 GM in SODIUM CHLORIDE 0.9% 100 ML IVPB STA (18:10)
[2019-04-04] MEDS ORDERED: VANCOMYCIN IV PER PHARMACY 1 EACH MISC MISCELLANE PRN (18:10)
[2019-04-04] MEDS ORDERED: DEXAMETHASONE SOD PHOSPHATE 10 MG/ML 1 ML VIAL IV STA (18:16)
[2019-04-04] MEDS ORDERED: VANCOMYCIN 1,250 MG in SODIUM CHLORIDE 0.9% 250 ML IVPB ONE (18:30)
[2019-04-04] MEDS ORDERED: ACETAMINOPHEN TAB 325 MG TAB PO STA (19:12)
[2019-04-04] MEDS: NICOTINE 14MG/24HR PATCH TRANSDERM SCH (19:15)
[2019-04-04 20:20] VITALS: BMI 22.6
[2019-04-04] MEDS: oxyCODONE-APAP 10-325MG 1 EACH TAB PO SCH (22:01)
[2019-04-05] MEDS: VANCOMYCIN 1,250 MG in SODIUM CHLORIDE 0.9% 250 ML IVPB SCH ×2 (07:10→19:39)
[2019-04-05] MEDS: PANTOPRAZOLE 40 MG TABLET PO SCH (07:10)
[2019-04-05] MEDS: oxyCODONE-APAP 10-325MG 1 EACH TAB PO SCH ×4 (08:08→22:55)
[2019-04-05] MEDS: IPRATROPIUM-ALBUTEROL 3 ML NEB INHALATION PRN ×3 (10:52→19:55)
[2019-04-05] MEDS: NICOTINE 14MG/24HR PATCH TRANSDERM SCH (17:07)
[2019-04-06] MEDS ORDERED: VANCOMYCIN TROUGH DUE 1 EACH MISC MISCELLANE ONE (06:00)
[2019-04-06 07:19] LABS: Basophils % (A) 0 %; Eosinophils # (A) 0.2 k/uL (0-0.7); Eosinophils % (A) 2 %; HCT 33.6 % (34.0-46.0); HGB 11.1 gm/dL (11.4-16.0); Lymphocytes # (A) 1.9 k/uL (1.0-4.8); Lymphocytes % (A) 17 %; MCH 31.2 pg (25.0-35.0); MCHC 32.9 g/dL (31.0-37.0); MCV 94.8 fL (80.0-100.0); Mean Platelet Volume 7.2; Monocytes # (A) 0.6 k/uL (0-1.0); Monocytes % (A) 6 %; Neutrophils # (A) 7.7 k/uL (1.3-7.7); Neutrophils % (A) 73 %; Platelet Count 186 k/uL (150-450); RBC 3.54 m/uL (3.80-5.40); RDW 12.5 % (11.5-15.5); WBC 10.7 k/uL (3.8-10.6)
[2019-04-06 07:23] LABS: African American GFR (CKD) >90 (>60 ml/min/1.73 sqM); Anion Gap 3 mmol/L; Blood Urea Nitrogen 13 mg/dL (7-17); Calcium 8.7 mg/dL (8.4-10.2); Carbon Dioxide 26 mmol/L (22-30); Chloride 107 mmol/L (98-107); Glucose 88 mg/dL (74-99); Potassium 3.9 mmol/L (3.5-5.1); Sodium 136 mmol/L (137-145)
[2019-04-06] MEDS: predniSONE 20 MG TAB PO SCH (07:31)
[2019-04-06] MEDS: PANTOPRAZOLE 40 MG TABLET PO SCH (07:31)
[2019-04-06] MEDS: VANCOMYCIN 1,250 MG in SODIUM CHLORIDE 0.9% 250 ML IVPB SCH (07:31)
[2019-04-06] MEDS: oxyCODONE-APAP 10-325MG 1 EACH TAB PO SCH ×4 (08:45→21:04)
[2019-04-06] MEDS ORDERED: LEVOFLOXACIN 750MG-D5W PMX 750 MG in DEXTROSE/WATER 1 150ML.BAG IVPB SCH (09:00)
--- NOTE | 2019-04-06 12:01 | CONS ---
CONSULTATION Yung Tubbs is a 59-year-old female who presented to the ED at [facility] with increasing shortness of breath of about one day's duration. She had been sick for approximately 20 days with cough, chills, some wheezing. She was treated with azithromycin as well as an ampicillin. I believe she may or may not have received steroids initially. She subsequently did receive some prednisone, became further short of breath and came into the ER. When she came to the ER, she was significantly short of breath. She was wheezing. She had been complaining of some thoracic back pain as well. She was admitted for further evaluation and management. PAST MEDICAL HISTORY: She has a past medical history of asthma, COPD and emphysema diagnosed apparently 2 years ago, history of a gastric ulcer, hiatal hernia, back, neck and hip pain, history of breast biopsy, EGD, colonoscopy. FAMILY HISTORY: Noncontributory. SOCIAL HISTORY: Patient is a current every day smoker. She does not drink alcohol excessively. MEDICATIONS: Her medications prior to admission were albuterol, prednisone and oxycodone with acetaminophen. REVIEW OF SYSTEMS: Review of systems is noncontributory. PHYSICAL EXAMINATION: On physical examination, respiratory rate is 18, pulse rate of 61, temperature 98.3, blood pressure 99/60, O2 saturation on room air is 97%. HEENT reveals pupils are equal. Chest reveals decreased breath sounds, prolonged exhalation, expiratory wheeze. Cardiovascular system reveals an S1, S2. Abdomen is soft. There is no pedal edema. White count is 18.9, hemoglobin of 12.4 with 0.2 thousand eosinophils 17.1 thousand neutrophils. Chest x-ray showed some atelectatic changes in the right costophrenic angle versus pneumonia and a hiatal hernia. IMPRESSION AT THIS TIME: 1. Severe asthma with acute exacerbation. 2. Baseline chronic obstructive pulmonary disease. 3. Nicotine dependence. At this point in time, keep her on Levaquin, systemic steroids, bronchodilators, aerosolized steroids, and Singulair. Keep her on GI and DVT prophylaxis. Depending on how she does, we shall make further changes to her care. She was counseled regarding her condition and this approach and has a fair understanding of our recommendations . MMODL / IJN: [id number] /
--- NOTE | 2019-04-06 12:48 | CT ---
EXAMINATION TYPE: CT chest wo con DATE OF EXAM: 04/06/2019 COMPARISON: 09/11/2017 HISTORY: Follow up lung nodules. CT DLP: 156 mGycm. Automated Exposure Control for Dose Reduction was Utilized. TECHNIQUE: CT scan of the thorax is performed without IV contrast. FINDINGS: LUNGS: The previously seen approximately 5 mm pulmonary nodule on the right upper lobe on 09/11/2017 a ppears smaller by measurement now measuring 3 mm. The previously seen subcentimeter solid pulmonary n odule just anterior to this is stable in size measuring 5 mm on series 4 image 24. The nodular densit y previously seen in the lingula has become more elongated and bandlike in the interim and appears as pleural parenchymal scarring on image 35. The previously seen spiculated density within the lingula does not persist and now appears as focal area of peribronchial cuffing. Biapical pleural parenchymal scarring is present with moderate background centrilobular and paraseptal emphysematous change. Othe r areas of chronic peribronchial cuffing and bronchiectasis are seen in the lower lobes and right mid dle lobe. New right basilar consolidation has areas of low density concerning for pneumonia. Scattered areas of right lateral dependent atelectasis and posterior atelectasis are seen. MEDIASTINUM: Ascending thoracic aorta measures upper limits normal at 4.0 cm. Mild coronary artery ca lcifications are seen. Small hiatal hernia. Lack of IV contrast is noted to limit evaluation for medi astinal and especially hilar adenopathy. There are no definitive greater than 1 cm hilar or mediastin al lymph nodes. No cardiomegaly or pericardial effusion is seen. OTHER: Mild multilevel degenerative changes of the thoracic spine are present. IMPRESSION: 1. New right basilar low-density consolidation concerning for unifocal pneumonia. 2. No interval growth of the right-sided pulmonary nodules, somewhat smaller size of one of the nodul es. The left-sided previously seen pulmonary nodules have changed in morphology and appear as peribro nchial cuffing and pleural parenchymal scarring rather than true nodules. Other areas of chronic sue bronchial cuffing are seen, most commonly postinfectious or postinflammatory.
--- NOTE | 2019-04-06 14:44 | P.HPIM ---
History of Present Illness H&P Date: 04/05/19 Chief Complaint: cough, andrew Yung Tubbs is a 59 yo F with PMH of COPD, tobacco abuse, chronic pain who presented to the ED complaining of cough, shortness of breath and malaise x2 weeks. She states her symptoms initially started as a cough and sore throat, she saw her PCP for this about 2 weeks ago and was given azithromycin and IM steroid. She states she felt a bit better for a day or two but then her symptoms came back so she went back to see her PCP last week and was given a prednisone taper. She has not had any improvement and after experiencing some shortness of breath with her cough she came in to the ED. Pt continues to smoke cigarettes daily, denies fevers or sick contacts. She follows with Dr. Mckeon in clinic but has not been in for a few months. In the ED she was noted with WBC 18.9, CXR with RLL infiltrate and influenza PCR negative. She was given a dose of vancomycin. Review of Systems All systems: negative Constitutional: Reports malaise, Reports sweats, Denies chills, Denies fever Eyes: denies blurred vision, denies pain Ears, nose, mouth and throat: Reports sore throat, Denies headache Cardiovascular: Denies chest pain, Denies shortness of breath Respiratory: Reports congestion, Reports cough, Reports cough with sputum, Reports dyspnea Gastrointestinal: Denies abdominal pain, Denies diarrhea, Denies nausea, Denies vomiting Genitourinary: Denies dysuria, Denies hematuria Musculoskeletal: Denies myalgias Integumentary: Denies pruritus, Denies rash Neurological: Denies numbness, Denies weakness Psychiatric: Denies anxiety, Denies depression Endocrine: Denies fatigue, Denies weight change Past Medical History Past Medical History: COPD, Musculoskeletal Disorder, Osteoarthritis (OA) Additional Past Medical History / Comment(s): Hx. Gastric Ulcer, hiatal hernia, back, neck & hip pain History of Any Multi-Drug Resistant Organisms: None Reported Past Surgical History: Breast Surgery Additional Past Surgical History / Comment(s): breast biopsy, EGD, colonoscopy Past Anesthesia/Blood Transfusion Reactions: No Reported Reaction Past Psychological History: No Psychological Hx Reported Smoking Status: Current every day smoker Past Alcohol Use History: Occasional Additional Past Alcohol Use History / Comment(s): 5cigs/day has smoked since age of 14 Past Drug Use History: None Reported - Past Family History Father Family Medical History: No Reported History Medications and Allergies Home Medications Medication Instructions Recorded Confirmed Type Albuterol Nebulized [Ventolin 2.5 mg INHALATION RT-TID PRN 12/01/16 04/04/19 History Nebulized] oxyCODONE HCL/ACETAMINOPHEN 1 tab PO QID 12/01/16 04/04/19 History [Percocet 10-325 mg] predniSONE See Taper PO DAILY 04/04/19 04/04/19 History Allergies Allergy/AdvReac Type Severity Reaction Status Date / Time Penicillins Allergy Unknown Verified 04/04/19 17:55 Childhood Physical Exam Vitals: Vital Signs Temp Pulse Pulse Resp BP Pulse Ox 04/06/19 05:00 98.3 F 61 18 99/60 97 04/05/19 21:00 98.0 F 79 18 99/63 97 04/05/19 20:07 72 04/05/19 19:55 70 04/05/19 16:05 70 04/05/19 15:56 70 04/05/19 15:33 98.4 F 73 18 103/68 96 Intake and Output 04/05/19 04/06/19 04/06/19 22:59 06:59 14:59 Intake Total 400 500 Balance 400 500 Intake: Oral 400 500 Other: Voiding Method Toilet Toilet # Voids 1 2 General: well nourished, well developed, NAD. Vitals reviewed Eyes: PERRL, EOMI, conjunctiva normal HENT: normocephalic, mucus membranes moist Neck: supple, no JVD Lungs: normal respiratory effort. Rhonchi and fine rales at R base. No wheezing CV: Regular rate and rhythm, no murmur. Peripheral pulses 2+ Abdomen: soft, nondistended, no organomegaly Lymph: no cervical or axillary LAD Skin: warm and dry. Neuro: A&Ox3, normal mood and affect Results CBC & Chem 7: 04/06/19 06:29 04/06/19 06:29 Labs: Abnormal Lab Results - Last 24 Hours (Table) 04/06/19 04/06/19 04/06/19 Range/Units 06:29 06:29 06:29 WBC 10.7 H (3.8-10.6) k/uL RBC 3.54 L (3.80-5.40) m/uL Hgb 11.1 L (11.4-16.0) gm/dL Hct 33.6 L (34.0-46.0) % Sodium 136 L (137-145) mmol/L Procalcitonin 0.12 H (0.02-0.09) ng/mL Microbiology - Last 24 Hours (Table) 04/04/19 19:16 Blood Culture - Preliminary Blood No Growth after 24 hours Thrombosis Risk Factor Assmnt - Choose All That Apply Any of the Below Risk Factors Present?: Yes Each Factor Represents 1 point: Abnormal pulmonary function (COPD), Age 41-60 years Other Risk Factors: No Other congenital or acquired thrombophilia - If yes, enter type in comment: No Thrombosis Risk Factor Assessment Total Risk Factor Score: 2 Thrombosis Risk Factor Assessment Level: Low Risk Assessment and Plan (1) Pneumonia of right lower lobe due to infectious organism Current Visit: Yes Status: Acute Code(s): J18.9 - PNEUMONIA, UNSPECIFIED ORGANISM SNOMED Code(s): 936930051 (2) Leukocytosis Current Visit: Yes Status: Acute Code(s): D72.829 - ELEVATED WHITE BLOOD CELL COUNT, UNSPECIFIED SNOMED Code(s): 071966209 (3) Asthma exacerbation with COPD (chronic obstructive pulmonary disease) Current Visit: Yes Status: Acute Code(s): J44.1 - CHRONIC OBSTRUCTIVE PULMONARY DISEASE W (ACUTE) EXACERBATION; J45.901 - UNSPECIFIED ASTHMA WITH (ACUTE) EXACERBATION SNOMED Code(s): 8232701851091 (4) Chronic pain Current Visit: Yes Status: Acute Code(s): G89.29 - OTHER CHRONIC PAIN SNOMED Code(s): 48718923 (5) COPD exacerbation Current Visit: Yes Status: Acute Code(s): J44.1 - CHRONIC OBSTRUCTIVE PULMONARY DISEASE W (ACUTE) EXACERBATION SNOMED Code(s): 051218307 Plan: 1. RLL pneumonia. COPD exacerbation. Pulmonology consulted. Continue levaquin, prednisone, duonebs. Mucinex prn for cough 2. Chronic pain disorder. Continue home percocet 3. Asthma. Continue singulair 4. Tobacco abuse. NRT DVT prophylaxis heparin
[2019-04-06] MEDS: IPRATROPIUM-ALBUTEROL 3 ML NEB INHALATION PRN ×2 (15:08→20:57)
--- NOTE | 2019-04-06 15:09 | P.PN ---
Subjective Progress Note Date: 04/06/19 Pt is feeling better today, less coughing and no longer short of breath. She is almost back to her baseline. Pt notes that she is due for CT chest to follow up on pulmonary nodules and is wondering if that will happen while she is inpatient. Objective - Vital Signs Vital signs: Vital Signs Temp 98.3 F 04/06/19 05:00 Pulse 61 04/06/19 05:00 Resp 18 04/06/19 05:00 BP 99/60 04/06/19 05:00 Pulse Ox 97 04/06/19 05:00 Intake & Output 04/05/19 04/06/19 04/06/19 18:59 06:59 18:59 Intake Total 900 Balance 900 Intake: Oral 900 Other: Voiding Method Toilet Toilet # Voids 2 2 - Exam General: well nourished, well developed, NAD. Vitals reviewed Lungs: normal respiratory effort. Mild rhonchi on R CV: Regular rate and rhythm, no murmur. Peripheral pulses 2+ Skin: warm and dry. Neuro: A&Ox3, normal mood and affect - Labs CBC & Chem 7: 04/06/19 06:29 04/06/19 06:29 Labs: Abnormal Lab Results - Last 24 Hours (Table) 04/06/19 04/06/19 04/06/19 Range/Units 06:29 06:29 06:29 WBC 10.7 H (3.8-10.6) k/uL RBC 3.54 L (3.80-5.40) m/uL Hgb 11.1 L (11.4-16.0) gm/dL Hct 33.6 L (34.0-46.0) % Sodium 136 L (137-145) mmol/L Procalcitonin 0.12 H (0.02-0.09) ng/mL Microbiology - Last 24 Hours (Table) 04/04/19 19:16 Blood Culture - Preliminary Blood No Growth after 24 hours Assessment and Plan (1) Pneumonia of right lower lobe due to infectious organism Current Visit: Yes Status: Acute Code(s): J18.9 - PNEUMONIA, UNSPECIFIED ORGANISM SNOMED Code(s): 633823973 (2) Leukocytosis Current Visit: Yes Status: Acute Code(s): D72.829 - ELEVATED WHITE BLOOD CELL COUNT, UNSPECIFIED SNOMED Code(s): 935211611 (3) Asthma exacerbation with COPD (chronic obstructive pulmonary disease) Current Visit: Yes Status: Acute Code(s): J44.1 - CHRONIC OBSTRUCTIVE PULMONARY DISEASE W (ACUTE) EXACERBATION; J45.901 - UNSPECIFIED ASTHMA WITH (ACUTE) EXACERBATION SNOMED Code(s): 2313890962438 (4) Chronic pain Current Visit: Yes Status: Acute Code(s): G89.29 - OTHER CHRONIC PAIN SNOMED Code(s): 94897822 (5) COPD exacerbation Current Visit: Yes Status: Acute Code(s): J44.1 - CHRONIC OBSTRUCTIVE PULMONARY DISEASE W (ACUTE) EXACERBATION SNOMED Code(s): 551598550 Plan: 1. RLL pneumonia. COPD exacerbation. Pulmonology consulted. Continue levaquin, prednisone, duonebs. Mucinex prn for cough 2. Chronic pain disorder. Continue home percocet 3. Asthma. Continue singulair 4. Tobacco abuse. NRT DVT prophylaxis heparin
[2019-04-06] MEDS: VANCOMYCIN 1,000 MG in SODIUM CHLORIDE 0.9% 250 ML IVPB SCH ×2 (15:24→23:37)
[2019-04-06] MEDS: NICOTINE 14MG/24HR PATCH TRANSDERM SCH (17:37)
[2019-04-06 20:22] VITALS: RESP 12
[2019-04-06] MEDS: BUDESONIDE 0.5 MG/2 ML NEBU INHALATION SCH (20:57)
[2019-04-06] MEDS ORDERED: MONTELUKAST 10 MG TAB PO SCH (21:00)
[2019-04-06] MEDS ORDERED: FAMOTIDINE 20 MG TAB PO SCH (21:00)
[2019-04-06] MEDS: HEPARIN SODIUM,PORCINE 5,000 UNIT/ML 1 ML VIAL SQ SCH (21:04)
[2019-04-07 05:46] VITALS: BP 132/85; PULSE 63; TEMP 97.7
[2019-04-07] MEDS: BUDESONIDE 0.5 MG/2 ML NEBU INHALATION SCH (07:14)
[2019-04-07] MEDS: oxyCODONE-APAP 10-325MG 1 EACH TAB PO SCH (08:08)
[2019-04-07] MEDS: predniSONE 20 MG TAB PO SCH (08:09)
[2019-04-07] MEDS: HEPARIN SODIUM,PORCINE 5,000 UNIT/ML 1 ML VIAL SQ SCH (08:09)
[2019-04-07] MEDS: PANTOPRAZOLE 40 MG TABLET PO SCH (08:09)
[2019-04-07] MEDS: VANCOMYCIN 1,000 MG in SODIUM CHLORIDE 0.9% 250 ML IVPB SCH (08:14)
[2019-04-07] MEDS ORDERED: VANCOMYCIN TROUGH DUE 1 EACH MISC MISCELLANE ONE (15:00)
== END 2019-04-07 09:37 | disposition home or self-care (01) | DRG 194 ==
LOC: EC 15:51 → 4MS4W 18:16 → OBSVTOIN 04-06 09:35 → 4MS4W 04-06 11:40
PROVIDERS: ADMIT Family Medicine; ATTEND Family Medicine
DX: J18.9 Pneumonia, unspecified organism (principal); J45.901 Unspecified asthma with (acute) exacerbation; J43.9 Emphysema, unspecified; F17.210 Nicotine dependence, cigarettes, uncomplicated; G89.29 Other chronic pain; Z79.1 Long term (current) use of non-steroidal anti-inflammatories (NSAID); Z87.01 Personal history of pneumonia (recurrent); Z87.11 Personal history of peptic ulcer disease; Z79.891 Long term (current) use of opiate analgesic; Z79.899 Other long term (current) drug therapy; Z88.0 Allergy status to penicillin; M54.2 Cervicalgia; M25.559 Pain in unspecified hip
CPT/HCPCS: 36415; 71046; 71250; 80048; 80202; 81003; 83605; 83735; 84145; 85025; 87040; 87502; 93005; 94640; 96365; 96375; 99285

== ENCOUNTER 2019-07-06 22:36 | Emergency (ER) | payer OTHER ==
[2019-07-06 22:48] VITALS: BP 122/75; PULSE 119; RESP 18; TEMP 101.2
--- NOTE | 2019-07-06 23:03 | XR ---
EXAMINATION TYPE: XR chest 2V DATE OF EXAM: 07/06/2019 COMPARISON: 04/04/2019 HISTORY: Cough TECHNIQUE: FINDINGS: There is consolidation in the right middle lobe. The other lung grimm are fairly clear. Th ere is no heart failure. Heart size is normal. There is small hiatal hernia. Bony thorax is intact. IMPRESSION: Right middle lobe pneumonia appears new compared to old exam. There is clearing of some i nfiltrate lateral basal segment right lower lobe compared to old exam.
[2019-07-06] MEDS ORDERED: ACETAMINOPHEN TAB 325 MG TAB PO STA (23:29)
[2019-07-06] MEDS ORDERED: cefTRIAXone 1,000 MG VIAL (IM USE) IM STA (23:29)
[2019-07-06] MEDS ORDERED: IBUPROFEN 600 MG TAB PO STA (23:29)
[2019-07-06] MEDS ORDERED: AZITHROMYCIN 250 MG TAB PO STA (23:29)
--- NOTE | 2019-07-06 23:33 | ED ---
URI HPI - General Chief Complaint: Upper Respiratory Infection Stated Complaint: URI Time Seen by Provider: 07/06/19 23:16 Source: patient, RN notes reviewed Mode of arrival: ambulatory Limitations: no limitations - History of Present Illness Initial Comments: This a 59-year-old female presents emergency Department chief complaint of fever cough congestion. Patient states that she had pneumonia a few months ago. She states that she has chronic lung issue secondary to smoking. Patient states that she saw PCP last week and which she sounded clear. Patient states that she is having symptoms consistent with her prior pneumonia. She has a productive cough. Denies any chest pain she has chronic shortness of breath not worsened usual. She is unsure if she has a fever but states that she has had some chills. Patient does admit to sinus congestion, mild ear fullness. - Related Data Home Medications Medication Instructions Recorded Confirmed oxyCODONE HCL/ACETAMINOPHEN 1 tab PO QID 12/01/16 04/04/19 [Percocet 10-325 mg] Previous Rx's Medication Instructions Recorded Levofloxacin 750 mg PO DAILY #5 tablet 04/07/19 Montelukast [Singulair] 10 mg PO HS #30 tab 04/07/19 Nicotine 14Mg/24Hr Patch [Habitrol] 1 patch TRANSDERM Q24H #30 patch 04/07/19 predniSONE See Taper PO DAILY #30 tab 04/07/19 Azithromycin [Zithromax Z-pack] 0 mg PO DIRECTED #1 pack 07/06/19 Allergies Allergy/AdvReac Type Severity Reaction Status Date / Time Penicillins Allergy Unknown Verified 07/06/19 22:48 Childhood Review of Systems ROS Statement: Those systems with pertinent positive or pertinent negative responses have been documented in the HPI. ROS Other: All systems not noted in ROS Statement are negative. Past Medical History Past Medical History: COPD, Musculoskeletal Disorder, Osteoarthritis (OA) Additional Past Medical History / Comment(s): Hx. Gastric Ulcer, hiatal hernia, back, neck & hip pain History of Any Multi-Drug Resistant Organisms: None Reported Past Surgical History: Breast Surgery Additional Past Surgical History / Comment(s): breast biopsy, EGD, colonoscopy Past Anesthesia/Blood Transfusion Reactions: No Reported Reaction Past Psychological History: No Psychological Hx Reported Smoking Status: Current every day smoker Past Alcohol Use History: Occasional Past Drug Use History: None Reported - Past Family History Father Family Medical History: No Reported History General Exam Limitations: no limitations General appearance: alert, in no apparent distress Head exam: Present: atraumatic, normocephalic, normal inspection Eye exam: Present: normal appearance, PERRL, EOMI. Absent: scleral icterus, conjunctival injection, periorbital swelling ENT exam: Present: mucous membranes moist. Absent: normal exam, normal oropharynx (Postnasal drainage mild erythema) Neck exam: Present: normal inspection, full ROM. Absent: tenderness, meningismus, lymphadenopathy Respiratory exam: Present: wheezes (Minimal bilateral), rhonchi (Right). Absent: normal lung sounds bilaterally, respiratory distress, rales, stridor Cardiovascular Exam: Present: normal rhythm, tachycardia, normal heart sounds. Absent: systolic murmur, diastolic murmur, rubs, gallop, clicks GI/Abdominal exam: Present: soft, normal bowel sounds. Absent: distended, tenderness, guarding, rebound, rigid Course Vital Signs 07/06/19 22:44 Temperature 101.2 F H Pulse Rate 119 H Respiratory 18 Rate Blood Pressure 122/75 O2 Sat by Pulse 97 Oximetry - Reevaluation(s) Reevaluation #1: 07/06/19 23:31 I counseled the patient for smoking cessation for greater than 3 minutes Medical Decision Making - Medical Decision Making 59-year-old female present for fever cough congestion bodyaches. Patient's influenza negative chest x-ray shows right middle lobe pneumonia. Patient is febrile, tachycardic I did recommend lab work for further evaluation. Patient states that she prefers to have medications, to be discharged with follow-up tomorrow with PCP as she was planning 2. Patient was given Rocephin, Zithromax her fever was treated with Tylenol Motrin return parameters discussed. - Lab Data Lab Results 07/06/19 Range/Units 22:49 Influenza Type A RNA Not Detected (Not Detectd) Influenza Type B (PCR) Not Detected (Not Detectd) Disposition Clinical Impression: Pneumonia Disposition: HOME SELF-CARE Condition: Stable Instructions (If sedation given, give patient instructions): Bacterial Pneumonia (ED) Additional Instructions: Please return to the Emergency Department if symptoms worsen or any other concerns. Prescriptions: Azithromycin [Zithromax Z-pack] 0 mg PO DIRECTED #1 pack Is patient prescribed a controlled substance at d/c from ED?: No Referrals: Charisse,Celso, MD [Primary Care Provider] - 1-2 days Time of Disposition: 23:33
== END 2019-07-06 23:51 | disposition home or self-care (01) ==
LOC: EC 22:36
DX: J18.9 Pneumonia, unspecified organism (principal); M19.90 Unspecified osteoarthritis, unspecified site; R00.0 Tachycardia, unspecified; F17.200 Nicotine dependence, unspecified, uncomplicated; Z79.891 Long term (current) use of opiate analgesic; Z88.0 Allergy status to penicillin
CPT/HCPCS: 99283 ×2; 96372 ×2; 99406 ×2; 87502; 71046; J0696

== ENCOUNTER 2022-11-25 21:12 | Emergency (ER) | payer OTHER ==
[2022-11-25 22:59] VITALS: TEMP 99
--- NOTE | 2022-11-25 23:51 | XR ---
EXAM: XR Chest, 2 Views CLINICAL HISTORY: ITS.REASON XR Reason: shortness of breath TECHNIQUE: Frontal and lateral views of the chest. COMPARISON: 07/06/2019 FINDINGS: Lungs: Consolidation within the inferior right upper lobe most concerning for an infectious etiology. Pleural space: Unremarkable. No pneumothorax. No pleural effusions. Heart: Unremarkable. No cardiomegaly. Mediastinum: Unremarkable. Bones/joints: No acute osseous abnormalities. IMPRESSION: Consolidation within the inferior right upper lobe most concerning for an infectious etiology.
[2022-11-26] MEDS ORDERED: LEVOFLOXACIN 750 MG TAB PO STA (00:37)
--- NOTE | 2022-11-26 00:42 | ED ---
General Adult HPI - General Chief complaint: Shortness of Breath Stated complaint: Pneumonia, Sent by Urgent Care Time Seen by Provider: 11/26/22 00:27 Source: patient Mode of arrival: ambulatory Limitations: no limitations - History of Present Illness Initial comments: This is a 62-year-old female with a past medical history including COPD and emp hysema presents emergency department after being sent in by urgent care for pneumonia. The patient stated that she was told that she had pneumonia and he come to the emergency department. The patient did not know why they did not just give her antibiotics. On arrival, the patient was resting in bed comfortably without any acute distress. The patient did state she started to have "feelings" in her chest last week and was improving with [id number] medications however stated that she had congestion and worsening fevers and chills today which made her go to the urgent care. The patient denied any other acute pain or complaints at this time. - Related Data Home Medications Medication Instructions Recorded Confirmed oxyCODONE HCL/ACETAMINOPHEN 1 tab PO QID 12/01/16 04/04/19 [Percocet 10-325 mg] Previous Rx's Medication Instructions Recorded Montelukast [Singulair] 10 mg PO HS #30 tab 04/07/19 Nicotine 14Mg/24Hr Patch [Habitrol] 1 patch TRANSDERM Q24H #30 patch 04/07/19 levoFLOXacin 750 mg PO DAILY #5 tablet 04/07/19 predniSONE See Taper PO DAILY #30 tab 04/07/19 Azithromycin [Zithromax Z-pack (6 0 mg PO DIRECTED #1 pack 07/06/19 tabs)] Levofloxacin [Levaquin] 750 mg PO DAILY 1 Days #4 tab 11/26/22 Allergies Allergy/AdvReac Type Severity Reaction Status Date / Time Penicillins Allergy Unknown Verified 11/25/22 22:56 Childhood Review of Systems ROS Statement: Those systems with pertinent positive or pertinent negative responses have been documented in the HPI. ROS Other: All systems not noted in ROS Statement are negative. Past Medical History Past Medical History: COPD, Musculoskeletal Disorder, Osteoarthritis (OA) Additional Past Medical History / Comment(s): Hx. Gastric Ulcer, hiatal hernia, back, neck & hip pain History of Any Multi-Drug Resistant Organisms: None Reported Past Surgical History: Breast Surgery Additional Past Surgical History / Comment(s): breast biopsy, EGD, colonoscopy Past Anesthesia/Blood Transfusion Reactions: No Reported Reaction Past Psychological History: No Psychological Hx Reported Smoking Status: Current every day smoker Past Alcohol Use History: Occasional Past Drug Use History: None Reported - Past Family History Father Family Medical History: No Reported History General Exam Limitations: no limitations General appearance: alert, in no apparent distress Head exam: Present: atraumatic, normocephalic, normal inspection Eye exam: Present: normal appearance, PERRL Pupils: Present: normal accommodation ENT exam: Present: normal exam, normal oropharynx, mucous membranes moist Neck exam: Present: normal inspection, full ROM Respiratory exam: Present: normal lung sounds bilaterally Cardiovascular Exam: Present: regular rate, normal rhythm, normal heart sounds GI/Abdominal exam: Present: soft, normal bowel sounds Extremities exam: Present: normal inspection, full ROM Back exam: Present: normal inspection, full ROM Neurological exam: Present: alert, oriented X3, CN II-XII intact Psychiatric exam: Present: normal affect, normal mood Skin exam: Present: warm, dry Course Vital Signs 11/25/22 22:56 Temperature 99 F Pulse Rate 98 Respiratory 16 Rate Blood Pressure 112/71 O2 Sat by Pulse 98 Oximetry Medical Decision Making - Medical Decision Making Was pt. sent in by a medical professional or institution (CHRISTINA Hendricks, CREATIVE WRITING PROFESSOR, urgent care, hospital, or retirement...) When possible be specific @ -Yes, sent in by urgent care Did you speak to anyone other than the patient for history (EMS, parent, family, police, friend...)? What history was obtained from this source @ -No Did you review nursing and triage notes (agree or disagree)? Why? @ -I reviewed and agree with nursing and triage notes Were old charts reviewed (outside hosp., previous admission, EMS record, old EKG, old radiological studies, urgent care reports/EKG's, retirement records)? Report findings @ -No old charts were reviewed Differential Diagnosis (chest pain, altered mental status, abdominal pain women, abdominal pain men, vaginal bleeding, weakness, fever, dyspnea, syncope, headache, dizziness, GI bleed, back pain, seizure, CVA, palpatations, mental health)? @ -Pneumonia, pneumothorax, ACS EKG interpreted by me (3pts min.). @ -None X-rays interpreted by me (1pt min.). @ -Chest x-ray was obtained and was interpreted by myself showing consolidation within the inferior right upper lobe of concerning for infectious etiology. CT interpreted by me (1pt min.). @ -None done U/S interpreted by me (1pt. min.). @ -None done What testing was considered but not performed or refused? (CT, X-rays, U/S, labs)? Why? @ -None What meds were considered but not given or refused? Why? @ -None Did you discuss the management of the patient with other professionals (professionals i.e. , PA, CREATIVE WRITING PROFESSOR, lab, RT, psych nurse, social science analyst, knocker off, teacher, water resources technical officer, case aide)? Give summary @ -No Was smoking cessation discussed for >3mins.? @ -Yes Was critical care preformed (if so, how long)? @ -No Were there social determinants of health that impacted care today? How? (Homelessness, low income, unemployed, alcoholism, drug addiction, transportation, low edu. Level, literacy, decrease access to med. care, correction, rehab)? @ -No Was there de-escalation of care discussed even if they declined (Discuss DNR or withdrawal of care, Hospice)? DNR status @ -No What co-morbidities impacted this encounter? (DM, HTN, Smoking, COPD, CAD, Cancer, CVA, ARF, Chemo, Hep., AIDS, mental health diagnosis, sleep apnea, morbid obesity)? @ -COPD, emphysema Was patient admitted / discharged? Hospital course, mention meds given and route, prescriptions, significant lab abnormalities, going to OR and other pertinent info. @ -The patient was seen and evaluated in emergency department. Physical exam, the patient was resting in bed without any acute distress. Vital signs were stable. Chest x-ray was obtained and showed concerning findings for pneumonia. Due to the patient's normal vital signs, in the setting of pneumonia, the patient would be able to tolerate a by mouth antibiotic. The patient was given a dose of levofloxacin as she is ALLERGIC to penicillins. The patient was also given a prescription for levofloxacin to be taken at home for 4 more days for a total course of 5 days. The patient was advised to follow back in the emergency department if she had worsening pain or distress. The patient was agreeable to this and all of her questions were answered appropriately. The patient was discharged home in stable condition. Undiagnosed new problem with uncertain prognosis? @ -No Drug Therapy requiring intensive monitoring for toxicity (Heparin, Nitro, Insulin, Cardizem)? @ -No Were any procedures done? @ -No Diagnosis/symptom? @ -Community acquired pneumonia Acute, or Chronic, or Acute on Chronic? @ -Acute Uncomplicated (without systemic symptoms) or Complicated (systemic symptoms)? @ -Uncomplicated Side effects of treatment? @ -No Exacerbation, Progression, or Severe Exacerbation? @ -No Poses a threat to life or bodily function? How? (Chest pain, [place], [place], pneumonia, PE, COPD, DKA, ARF, appy, cholecystitis, CVA, Diverticulitis, Homicidal, Suicidal, threat to staff... and all critical care pts) @ -No Disposition Clinical Impression: CAP (community acquired pneumonia), Nicotine dependence Disposition: HOME SELF-CARE Condition: Stable Instructions (If sedation given, give patient instructions): Bacterial Pneumonia (DC) Prescriptions: Levofloxacin [Levaquin] 750 mg PO DAILY 1 Days #4 tab Is patient prescribed a controlled substance at d/c from ED?: No Referrals: Celso Mcqueen MD [Primary Care Provider] - 1-2 days Time of Disposition: 00:30
[2022-11-26 00:58] VITALS: BP 108/67; PULSE 94
[2022-11-26 01:48] VITALS: RESP 18
== END 2022-11-26 01:03 | disposition home or self-care (01) ==
LOC: EC 21:12
DX: J18.9 Pneumonia, unspecified organism (principal); F17.200 Nicotine dependence, unspecified, uncomplicated; J44.9 Chronic obstructive pulmonary disease, unspecified; Z88.0 Allergy status to penicillin
CPT/HCPCS: 71046; 99284

== ENCOUNTER → 2023-11-25 | Outpatient (CLI) | payer BC ==
--- NOTE | 2023-11-29 17:23 | MM ---
Reason for Exam: Screening (asymptomatic). Patient History: Menarche at age 13. First Full-Term at age 30. Postmenopausal. Maternal grandmother had ovarian cancer at or over age 50. Sister had breast cancer under age 50. Sister had breast cancer, age 60. Risk Values: Violeta 5 year model risk: 5.6%. NCI Lifetime model risk: 24.5%. Tissue Density: The breasts are heterogeneously dense, which may obscure small masses. Findings: Analyzed By CAD. Multiple areas of bilateral asymmetric density for which spot views are recommended. Findings may represent superimposition shadow but no priors are available for comparison purposes. In addition, there are subtle 12:00 microcalcifications in the right breast for which further magnification views are recommended. Overall Assessment: Incomplete: need additional imaging evaluation, BI-RAD 0 Management: Diagnostic Mammogram of both breasts. Diagnostic Breast Ultrasound of both breasts. Spot views both breasts along with magnification views right breast. Additional whole bilateral breast ultrasounds. [facility] will attempt to contact patient to return for supplemental views and ultrasound if indicated. Electronically signed and approved by: Cassius Holley M.D. Radiologist
== END | disposition home or self-care (01) ==
LOC: RADMAMWWP 12:46
PROVIDERS: ATTEND Family Medicine
DX: Z12.31 Encounter for screening mammogram for malignant neoplasm of breast (principal); Z78.0 Asymptomatic menopausal state; Z80.3 Family history of malignant neoplasm of breast; Z80.41 Family history of malignant neoplasm of ovary
CPT/HCPCS: 77067

== ENCOUNTER → 2023-12-03 | Outpatient (CLI) | payer BC ==
--- NOTE | 2023-12-03 08:52 | MM ---
Reason for Exam: Additional evaluation requested from abnormal screening. Last screening mammogram was performed less than 1 month ago. Patient History: Menarche at age 13. First Full-Term at age 30. Postmenopausal. Maternal grandmother had ovarian cancer at or over age 50. Sister had breast cancer under age 50. Sister had breast cancer, age 60. Risk Values: Violeta 5 year model risk: 5.6%. NCI Lifetime model risk: 24.5%. Prior Study Comparison: 11/25/2023 Bilateral MG screening mammo w CAD, LOC[facility]IN [facility]. Tissue Density: The breasts are extremely dense, which lowers the sensitivity of mammography. Findings: Analyzed By CAD. The overall pattern is symmetrical. Under compression no persistent underlying suspicious distortion or spiculated or lobular masses evident. There are some loosely grouped round benign appearing calcifications in the 12:00 position middle to posterior right breast. No suspicious groups of microcalcifications, spiculated or lobular masses, architectural distortion or other secondary signs of malignancy are mammographically apparent. Overall Assessment: Benign, BI-RAD 2 Management: Screening Mammogram of both breasts in 1 year. A negative mammogram report should not preclude additional follow up of suspicious palpable abnormalities. Patient should continue monthly self breast exam. A clinical breast exam by your physician is recommended on an annual basis and results should be correlated with mammographic findings. Note on Violeta scores and lifetime risk: 1. A Violeta score greater than 3% is considered moderate risk. If this is the case, consider specialist referral to assess eligibility for a risk reducing agent. 2. If overall lifetime risk for the development of breast cancer is 20% or higher, the patient may qualify for future screening with alternating mammogram and breast MRI. Electronically signed and approved by: Jeff Albarado D.O. Radiologis
== END | disposition home or self-care (01) ==
LOC: RADMAMWWP 08:05
PROVIDERS: ATTEND Family Medicine
DX: R92.343 Mammographic extreme density, bilateral breasts (principal); R92.8 Other abnormal and inconclusive findings on diagnostic imaging of breast; Z78.0 Asymptomatic menopausal state; Z80.3 Family history of malignant neoplasm of breast
CPT/HCPCS: 77062; 77066

== ENCOUNTER 2024-01-05 12:00 | Day surgery (SDC) | payer BC ==
[~2024-01-05 12:00] MED LIST: LACTATED RINGERS 1,000 ML IV SCH; LIDOCAINE 1% (10MG/ML) FOR IV START INTRADERMA PRN
[2024-01-05] MEDS ORDERED: PROPOFOL 10 MG/ML 20 ML VIAL IV ONE (13:28)
--- NOTE | 2024-01-16 15:52 | PCN ---
PROCEDURE NOTE PROCEDURE: Screening colonoscopy. PREOPERATIVE DIAGNOSIS: Screening colonoscopy. POSTOPERATIVE DIAGNOSIS: Normal colon with poor colon polyp. ANESTHESIA: MAC. DESCRIPTION OF PROCEDURE: The patient was placed on the endoscopy table in the lateral position. She received IV sedation. A digital rectal exam was performed. This revealed no abnormalities. The flexible colonoscope was then placed into the patient's anus and passed throughout the entire colon. The ileocecal valve was visualized. The bowel prep was quite poor. The visualized colon appeared normal. The right colon appeared normal. The transverse colon appeared normal. The descending and sigmoid colon appeared normal. However, the prep was quite poor. The scope was brought back to the rectum. This was normal. The scope was withdrawn from the patient. MMODL / IJN: [id number] /
== END 2024-01-05 14:21 ==
LOC: ORWHC2ENDO 12:00
PROVIDERS: ATTEND Surgery
DX: Z12.11 Encounter for screening for malignant neoplasm of colon (principal); F17.210 Nicotine dependence, cigarettes, uncomplicated; Z88.0 Allergy status to penicillin; Z98.890 Other specified postprocedural states
CPT/HCPCS: 45378